=== PATIENT | female | born 1950 | race Caucasian/White ===

== ENCOUNTER 2017-07-05 19:31 | Inpatient (IN) ==
[2017-07-05] MEDS ORDERED: 0.9 % Sodium Chloride 1,000 ML IVC ONE ×3 (19:50→23:43)
[2017-07-05] MEDS ORDERED: Piperacillin/Tazobactam 3.375 GM in 0.9 % Sodium Chloride Mini Bag 100 ML IVPB ONE (20:19)
--- NOTE | 2017-07-05 20:19 | Emergency Department Note ---
Disposition Clinical Impression: Sepsis affecting skin, Abscess, Suicidal ideation, Suicide attempt, Acute kidney injury, Elevated troponin, Left leg cellulitis Disposition: Admitted As Inpatient Condition: Serious Time of Disposition: 00:38 General Adult HPI - General Chief complaint: ED Wound/Laceration Stated complaint: SI/wound infection Time Seen by Provider: 07/05/17 19:38 Source: patient Limitations: no limitations Nursing Notes Reviewed: Yes Vital Signs Reviewed: Yes - History of Present Illness HPI Narrative: Patient is a 66-year-old female presents to the emergency department with a severe wound infection of the left lower extremity as well as admitting to attempted suicide by taking 15-2020 mg pills of oxycodone. Patient states she has had a long-standing history of suicidal ideation. Patient states she has wound care changing dressings on her extremity every day but the wound persists. Patient states the wound is approximately 10 cm deep. Pain Scale: 4 - Related Data Home Medications Medication Instructions Recorded Confirmed CloNIDine HCl 0.1 mg PO BID 07/22/15 07/05/17 Desvenlafaxine Succinate [Pristiq] 50 mg PO QAM 07/22/15 07/05/17 Lisinopril-HCTZ 10-12.5 [Prinzide 1 tab PO BID 07/22/15 07/05/17 10-12.5] Docusate [Colace] 300 mg PO HS 06/05/16 07/05/17 L. Acidophilus/Pectin, [place] 1 each PO DAILY 06/05/16 07/05/17 [Acidophilus Probiotic Capsule] Multivitamin [Multi-Day Vitamins] 1 each PO DAILY 06/05/16 07/05/17 Pseudoephedrine [Sudafed] 60 mg PO TID 06/05/16 07/05/17 Simvastatin [Zocor] 20 mg PO HS 06/05/16 07/05/17 Collagenase Oint [Santyl] 1 appl TP DAILY 07/05/17 07/05/17 Gentamicin Sulfate [Gentamicin 1 appl TP DAILY 07/05/17 07/05/17 Sulfate] Guaifenesin [Mucinex] 600 mg PO Q12H PRN 07/05/17 07/05/17 Mupirocin [Bactroban Oint] 1 appl TP DAILY 07/05/17 07/05/17 OxyCODONE ER (12 HR) [OxyCONTIN] 80 mg PO Q8H 07/05/17 07/05/17 Oxycodone HCl [Oxycodone HCl] 20 mg PO TID 07/05/17 07/05/17 Previous Rx's Medication Instructions Recorded Cyclobenzaprine HCl 10 mg PO TID #28 tablet 08/01/16 Allergies Allergy/AdvReac Type Severity Reaction Status Date / Time clorazepate dipotassium Allergy Itching Verified 06/05/16 13:56 [From Tranxene T-Tab] atorvastatin [From Lipitor] AdvReac Nausea Verified 06/05/16 13:56 bupropion [From Wellbutrin] AdvReac Agitated Verified 06/05/16 13:56 divalproex sodium AdvReac Vomiting Verified 06/05/16 13:56 [From Depakote] eszopiclone [From Lunesta] AdvReac Headache Verified 06/05/16 13:56 gabapentin AdvReac Blurry Verified 06/05/16 13:56 Vision mirtazapine [From Remeron] AdvReac Confusion Verified 06/05/16 13:56 Nefazodone [From Serzone] AdvReac Confusion Verified 06/05/16 13:56 vancomycin AdvReac Itching Verified 06/05/16 13:56 All systems ED: reviewed and negative except as stated. Review of Systems: As Per HPI Past Medical History - Past Medical History Attestation: Yes The following information was validated with the patient. Source: patient Medical history: Reports: arthritis, hyperlipidemia, hypertension, other Surgical history: Reports: hip replacement, knee replacement, MARY/BSO, other Psychiatric history: Reports: depression - Social History Smoking Status: Never smoker Smokeless Tobacco Status: No Alcohol use: Reports: none Drug use: Reports: none Physical Exam Vital Signs Temperature 99.2 F 07/05/17 19:32 Pulse Rate 120 07/05/17 19:32 Respiratory Rate 20 07/05/17 19:32 Blood Pressure 124/62 07/05/17 19:32 O2 Sat by Pulse Oximetry 92 07/05/17 19:32 Temperature 99.2 F 07/05/17 19:32 Pulse Rate 117 07/05/17 19:50 Respiratory Rate 20 07/05/17 21:23 Blood Pressure 91/56 07/05/17 21:23 O2 Sat by Pulse Oximetry 96 07/05/17 21:23 Oxygen Delivery Oxygen Delivery Nasal Cannula 59-year-old female who is alert and oriented 3 does not appear to be in any acute distress at this time. Patient has a GCS of 15, patient is able to maintain conversation and answer questions appropriately and chills off and on then from being sleepy. The patient has large bandage lateral portion of the of her left leg just superior to her left knee that is draining grayish purulent material that smells like feces. Wound was explored and has a 10 cm track and had courtney thick purulent material expressed. - General Limitations: no limitations General appearance: alert, in no apparent distress - Head Head exam: atraumatic, normocephalic, normal inspection - Eye Eye exam: Present: normal appearance, PERRL, EOMI - ENT ENT exam: normal exam, normal oropharynx, mucous membranes dry - Neck Neck exam: Present: normal inspection, full ROM, trachea midline - Chest Chest inspection: Present: normal inspection, symmetric chest wall rise. Absent : tenderness, rash - Respiratory Respiratory exam: Present: normal lung sounds bilaterally. Absent: respiratory distress, wheezes - Cardiovascular Cardiovascular exam: Present: regular rate, normal rhythm, normal heart sounds - Abdominal Exam Abdominal exam: Present: soft, Non-Tender. Absent: tenderness, distention, guarding, rebound, rigidity - Extremities Exam Extremities exam: Present: other (Patient's lower extremities are trunklike. Patient is unable to maintain her body weight and her legs and has a deep purulent wound to the left lateral) Course Vital Signs Temperature 99.2 F 07/05/17 19:32 Pulse Rate 120 07/05/17 19:32 Respiratory Rate 20 07/05/17 19:32 Blood Pressure 124/62 07/05/17 19:32 O2 Sat by Pulse Oximetry 92 07/05/17 19:32 Temperature 98.1 F 07/10/17 07:07 Pulse Rate 90 07/10/17 07:07 Respiratory Rate 18 07/10/17 07:07 Blood Pressure 187/100 07/10/17 07:07 O2 Sat by Pulse Oximetry 91 07/10/17 07:07 Oxygen Delivery Oxygen Delivery Nasal Cannula Medical Decision Making - [facility] Narrative Medical decision making narrative: Patient presents for concerns for suicidal ideation with suicide attempt by using oxycodone ingestion of 15 and 2020 mg tablets. Patient also has concern for sepsis secondary to cellulitis of the left lower extremity which has a festering wound with pockets of pus. Examination her wound showed a 10 cm deep wound with copious thick chunky courtney malodorous. Patient started on Zosyn and linezolid since patient is allergic to vancomycin patient is also given 4 L of fluid bolus. Patient is drowsy but arousable and when she is aroused she is alert and oriented 3. Patient responds well to all questions and has no confusion. Gen. surgery was consulted. Spoke to Dr. Astorga who recommended medical management and Dr. Vee will see the patient in the morning and since he has history of the patient. Patient was admitted to medicine. Hospitalist Dr. Monterroso accepted patient for admission. - Medical Records Medical records reviewed: Yes I reviewed the patient's medical records. Review of patient's MRI taken 3 days ago showed multiple pockets of abscess formation in the left extremity. - Lab Data Lab results reviewed: Yes I reviewed the patient's lab results. Lab results narrative: Short CBC 07/05/17 Range/Units 20:31 WBC 17.0 H (4.3-11.1) K/mcL Hgb 10.0 L (11.5-15.4) g/dL Hct 32.5 L (35.3-44.9) % Plt Count 337 (140-400) K/mcL Neutrophils # 14.9 H (1.6-8.9) K/mcL BMP 07/05/17 Range/Units 20:31 Sodium 134 L (136-145) mEq/L Potassium 4.4 (3.5-4.5) mEq/L Chloride 100 (98-109) mEq/L Carbon Dioxide 25 (19-29) mEq/L BUN 46 H (7-20) mg/dL Creatinine 1.71 H (0.57-1.11) mg/dL Glucose 132 H (70-99) mg/dL Calcium 9.6 (8.6-10.8) mg/dL Cardiac Enzymes 07/05/17 Range/Units 20:28 Troponin I 0.20 H* (0-0.03) ng/mL Liver Function 07/05/17 Range/Units 20:31 Total Bilirubin 0.5 (0.2-1.2) mg/dL Direct Bilirubin 0.2 (0.0-0.5) mg/dL AST 22 (5-34) Units/L ALT 24 (0-55) Units/L Alkaline Phosphatase 88 (38-126) Units/L Albumin 2.9 L (3.5-5.0) g/dL Urine 07/05/17 Range/Units 21:08 Urine Color Dark Yellow (Yellow) Urine Clarity Cloudy A (Clear) Urine pH 5.5 (5.0-8.0) pH Units Ur Specific [place] 1.025 (1.010-1.025) Urine Protein Trace (Neg-Trace) mg/dL Urine Glucose (UA) Normal (Normal) mg/dL Result diagrams: 07/10/17 04:39 07/10/17 04:39 Lab Results 07/05/17 07/05/17 07/05/17 Range/Units 20:28 20:28 20:31 WBC 17.0 H (4.3-11.1) K/mcL RBC 3.49 L (3.82-4.97) M/mcL Hgb 10.0 L (11.5-15.4) g/dL Hct 32.5 L (35.3-44.9) % MCV 93.1 (83.0-100.0) fL MCH 28.7 (28.0-33.3) pg MCHC 30.8 L (31.6-35.5) g/dL RDW 14.6 H (11.5-14.5) % Plt Count 337 (140-400) K/mcL MPV 9.5 (9.4-12.4) fL Immature Gran % 0.7 (0-4) % Seg Neutrophils % 87.3 % Lymphocytes % 4.9 % Monocytes % 7.0 % Eosinophils % 0.0 % Basophils % 0.1 % Neutrophils # 14.9 H (1.6-8.9) K/mcL Lymphocytes # 0.8 (0.6-4.6) K/mcL Monocytes # 1.2 (0.0-1.3) K/mcL Eosinophils # 0.0 (0.0-0.6) K/mcL Basophils # 0.0 (0.0-0.2) K/mcL PT (9.4-12.1) Seconds INR APTT (26.0-36.0) Seconds D-Dimer (0-500) ng/mLFEU Sodium (136-145) mEq/L Potassium (3.5-4.5) mEq/L Chloride (98-109) mEq/L Carbon Dioxide (19-29) mEq/L BUN (7-20) mg/dL Creatinine (0.57-1.11) mg/dL Est GFR ( Amer) (> 60) Est GFR (Non-Af Amer) (> 60) BUN/Creatinine Ratio (6-26) Glucose (70-99) mg/dL POC Glucose (58-89) Calculated Osmolality (280-300) Lactic Acid (0.5-2.2) mmol/L Calcium (8.6-10.8) mg/dL Phosphorus 4.1 (2.3-4.7) mg/dL Magnesium 2.0 (1.6-2.6) mg/dL Total Bilirubin (0.2-1.2) mg/dL Direct Bilirubin (0.0-0.5) mg/dL Indirect Bilirubin (0.0-1.2) mg/dL AST (5-34) Units/L ALT (0-55) Units/L Alkaline Phosphatase (38-126) Units/L Troponin I 0.20 H* (0-0.03) ng/mL B-Natriuretic Peptide (0-100) pg/mL Serum Total Protein (6.0-8.3) g/dL Albumin (3.5-5.0) g/dL Globulin (2.4-3.5) g/dL Albumin/Globulin Ratio (1.1-2.2) Urine Color (Yellow) Urine Clarity (Clear) Urine pH (5.0-8.0) pH Units Ur Specific [place] (1.010-1.025) Urine Protein (Neg-Trace) mg/dL Urine Glucose (UA) (Normal) mg/dL Urine Ketones (Negative) mg/dL Urine Blood (Negative) Urine Nitrite (Negative) Urine Bilirubin (Negative) Urine Urobilinogen (Normal) mg/dL Ur Leukocyte Esterase (Negative) Urine Microscopic RBC (0-3) per hpf Urine Microscopic WBC (0-3) per hpf Ur Squamous Epith Cells (None-Few) per lpf Urine Bacteria (None-Few) per hpf Hyaline Casts (None-Few) per lpf Salicylates (15-30) mg/dL Urine Opiates Screen (Ligvan=786) ng/mL Acetaminophen (10-30) mcg/mL Ur Barbiturates Screen (Fpaxch=409) ng/mL Ur Phencyclidine Scrn (Cutoff=25) ng/mL Ur Amphetamines Screen (Elbbwx=7694) ng/mL U Benzodiazepines Scrn (Hgrlhr=897) ng/mL Urine Cocaine Screen (Cutoff= 300) ng/mL U Marijuana (THC) Screen (Cutoff = 50) ng/mL Ethyl Alcohol (0-10) mg/dL 07/05/17 07/05/17 07/05/17 Range/Units 20:31 20:31 21:08 WBC (4.3-11.1) K/mcL RBC (3.82-4.97) M/mcL Hgb (11.5-15.4) g/dL Hct (35.3-44.9) % MCV (83.0-100.0) fL MCH (28.0-33.3) pg MCHC (31.6-35.5) g/dL RDW (11.5-14.5) % Plt Count (140-400) K/mcL MPV (9.4-12.4) fL Immature Gran % (0-4) % Seg Neutrophils % % Lymphocytes % % Monocytes % % Eosinophils % % Basophils % % Neutrophils # (1.6-8.9) K/mcL Lymphocytes # (0.6-4.6) K/mcL Monocytes # (0.0-1.3) K/mcL Eosinophils # (0.0-0.6) K/mcL Basophils # (0.0-0.2) K/mcL PT (9.4-12.1) Seconds INR APTT (26.0-36.0) Seconds D-Dimer (0-500) ng/mLFEU Sodium 134 L (136-145) mEq/L Potassium 4.4 (3.5-4.5) mEq/L Chloride 100 (98-109) mEq/L Carbon Dioxide 25 (19-29) mEq/L BUN 46 H (7-20) mg/dL Creatinine 1.71 H (0.57-1.11) mg/dL Est GFR ( Amer) 36 L (> 60) Est GFR (Non-Af Amer) 30 L (> 60) BUN/Creatinine Ratio 27 H (6-26) Glucose 132 H (70-99) mg/dL POC Glucose (58-89) Calculated Osmolality 292 (280-300) Lactic Acid 1.9 (0.5-2.2) mmol/L Calcium 9.6 (8.6-10.8) mg/dL Phosphorus (2.3-4.7) mg/dL Magnesium (1.6-2.6) mg/dL Total Bilirubin 0.5 (0.2-1.2) mg/dL Direct Bilirubin 0.2 (0.0-0.5) mg/dL Indirect Bilirubin 0.3 (0.0-1.2) mg/dL AST 22 (5-34) Units/L ALT 24 (0-55) Units/L Alkaline Phosphatase 88 (38-126) Units/L Troponin I (0-0.03) ng/mL B-Natriuretic Peptide (0-100) pg/mL Serum Total Protein 7.3 (6.0-8.3) g/dL Albumin 2.9 L (3.5-5.0) g/dL Globulin 4.4 H (2.4-3.5) g/dL Albumin/Globulin Ratio 0.7 L (1.1-2.2) Urine Color Dark Yellow (Yellow) Urine Clarity Cloudy A (Clear) Urine pH 5.5 (5.0-8.0) pH Units Ur Specific [place] 1.025 (1.010-1.025) Urine Protein Trace (Neg-Trace) mg/dL Urine Glucose (UA) Normal (Normal) mg/dL Urine Ketones Negative (Negative) mg/dL Urine Blood Negative (Negative) Urine Nitrite Negative (Negative) Urine Bilirubin Small H (Negative) Urine Urobilinogen Normal (Normal) mg/dL Ur Leukocyte Esterase Negative (Negative) Urine Microscopic RBC 0-3 (0-3) per hpf Urine Microscopic WBC 0-3 (0-3) per hpf Ur Squamous Epith Cells Many H (None-Few) per lpf Urine Bacteria Few (None-Few) per hpf Hyaline Casts Many H (None-Few) per lpf Salicylates < 5.0 L (15-30) mg/dL Urine Opiates Screen (Odyqot=430) ng/mL Acetaminophen < 1.0 L (10-30) mcg/mL Ur Barbiturates Screen (Ckuvpk=234) ng/mL Ur Phencyclidine Scrn (Cutoff=25) ng/mL Ur Amphetamines Screen (Xuwxoe=2304) ng/mL U Benzodiazepines Scrn (Xwilob=139) ng/mL Urine Cocaine Screen (Cutoff= 300) ng/mL U Marijuana (THC) Screen (Cutoff = 50) ng/mL Ethyl Alcohol < 10 (0-10) mg/dL 07/05/17 07/06/17 07/06/17 Range/Units 21:08 00:57 00:57 WBC (4.3-11.1) K/mcL RBC (3.82-4.97) M/mcL Hgb (11.5-15.4) g/dL Hct (35.3-44.9) % MCV (83.0-100.0) fL MCH (28.0-33.3) pg MCHC (31.6-35.5) g/dL RDW (11.5-14.5) % Plt Count (140-400) K/mcL MPV (9.4-12.4) fL Immature Gran % (0-4) % Seg Neutrophils % % Lymphocytes % % Monocytes % % Eosinophils % % Basophils % % Neutrophils # (1.6-8.9) K/mcL Lymphocytes # (0.6-4.6) K/mcL Monocytes # (0.0-1.3) K/mcL Eosinophils # (0.0-0.6) K/mcL Basophils # (0.0-0.2) K/mcL PT 13.6 H (9.4-12.1) Seconds INR 1.3 APTT 29.0 (26.0-36.0) Seconds D-Dimer 1571 H (0-500) ng/mLFEU Sodium (136-145) mEq/L Potassium (3.5-4.5) mEq/L Chloride (98-109) mEq/L Carbon Dioxide (19-29) mEq/L BUN (7-20) mg/dL Creatinine (0.57-1.11) mg/dL Est GFR ( Amer) (> 60) Est GFR (Non-Af Amer) (> 60) BUN/Creatinine Ratio (6-26) Glucose (70-99) mg/dL POC Glucose (58-89) Calculated Osmolality (280-300) Lactic Acid (0.5-2.2) mmol/L Calcium (8.6-10.8) mg/dL Phosphorus (2.3-4.7) mg/dL Magnesium (1.6-2.6) mg/dL Total Bilirubin (0.2-1.2) mg/dL Direct Bilirubin (0.0-0.5) mg/dL Indirect Bilirubin (0.0-1.2) mg/dL AST (5-34) Units/L ALT (0-55) Units/L Alkaline Phosphatase (38-126) Units/L Troponin I (0-0.03) ng/mL B-Natriuretic Peptide 84 (0-100) pg/mL Serum Total Protein (6.0-8.3) g/dL Albumin (3.5-5.0) g/dL Globulin (2.4-3.5) g/dL Albumin/Globulin Ratio (1.1-2.2) Urine Color (Yellow) Urine Clarity (Clear) Urine pH (5.0-8.0) pH Units Ur Specific [place] (1.010-1.025) Urine Protein (Neg-Trace) mg/dL Urine Glucose (UA) (Normal) mg/dL Urine Ketones (Negative) mg/dL Urine Blood (Negative) Urine Nitrite (Negative) Urine Bilirubin (Negative) Urine Urobilinogen (Normal) mg/dL Ur Leukocyte Esterase (Negative) Urine Microscopic RBC (0-3) per hpf Urine Microscopic WBC (0-3) per hpf Ur Squamous Epith Cells (None-Few) per lpf Urine Bacteria (None-Few) per hpf Hyaline Casts (None-Few) per lpf Salicylates (15-30) mg/dL Urine Opiates Screen Positive H (Dgubqp=089) ng/mL Acetaminophen (10-30) mcg/mL Ur Barbiturates Screen Negative (Rjfzxm=306) ng/mL Ur Phencyclidine Scrn Negative (Cutoff=25) ng/mL Ur Amphetamines Screen Negative (Rxodxt=4119) ng/mL U Benzodiazepines Scrn Negative (Zfamus=458) ng/mL Urine Cocaine Screen Negative (Cutoff= 300) ng/mL U Marijuana (THC) Screen Negative (Cutoff = 50) ng/mL Ethyl Alcohol (0-10) mg/dL 07/06/17 07/06/17 07/06/17 Range/Units 00:57 00:57 00:57 WBC 14.6 H (4.3-11.1) K/mcL RBC 3.25 L (3.82-4.97) M/mcL Hgb 9.6 L (11.5-15.4) g/dL Hct 30.8 L (35.3-44.9) % MCV 94.8 (83.0-100.0) fL MCH 29.5 (28.0-33.3) pg MCHC 31.2 L (31.6-35.5) g/dL RDW 14.6 H (11.5-14.5) % Plt Count 288 (140-400) K/mcL MPV 9.5 (9.4-12.4) fL Immature Gran % 0.5 (0-4) % Seg Neutrophils % 86.3 % Lymphocytes % 6.8 % Monocytes % 6.2 % Eosinophils % 0.1 % Basophils % 0.1 % Neutrophils # 12.6 H (1.6-8.9) K/mcL Lymphocytes # 1.0 (0.6-4.6) K/mcL Monocytes # 0.9 (0.0-1.3) K/mcL Eosinophils # 0.0 (0.0-0.6) K/mcL Basophils # 0.0 (0.0-0.2) K/mcL PT (9.4-12.1) Seconds INR APTT (26.0-36.0) Seconds D-Dimer (0-500) ng/mLFEU Sodium 134 L (136-145) mEq/L Potassium 4.3 (3.5-4.5) mEq/L Chloride 102 (98-109) mEq/L Carbon Dioxide 23 (19-29) mEq/L BUN 44 H (7-20) mg/dL Creatinine 1.64 H (0.57-1.11) mg/dL Est GFR ( Amer) 38 L (> 60) Est GFR (Non-Af Amer) 31 L (> 60) BUN/Creatinine Ratio 27 H (6-26) Glucose 112 H (70-99) mg/dL POC Glucose (58-89) Calculated Osmolality 290 (280-300) Lactic Acid (0.5-2.2) mmol/L Calcium 9.0 (8.6-10.8) mg/dL Phosphorus (2.3-4.7) mg/dL Magnesium 2.0 (1.6-2.6) mg/dL Total Bilirubin (0.2-1.2) mg/dL Direct Bilirubin (0.0-0.5) mg/dL Indirect Bilirubin (0.0-1.2) mg/dL AST (5-34) Units/L ALT (0-55) Units/L Alkaline Phosphatase (38-126) Units/L Troponin I 0.44 H* (0-0.03) ng/mL B-Natriuretic Peptide (0-100) pg/mL Serum Total Protein (6.0-8.3) g/dL Albumin (3.5-5.0) g/dL Globulin (2.4-3.5) g/dL Albumin/Globulin Ratio (1.1-2.2) Urine Color (Yellow) Urine Clarity (Clear) Urine pH (5.0-8.0) pH Units Ur Specific [place] (1.010-1.025) Urine Protein (Neg-Trace) mg/dL Urine Glucose (UA) (Normal) mg/dL Urine Ketones (Negative) mg/dL Urine Blood (Negative) Urine Nitrite (Negative) Urine Bilirubin (Negative) Urine Urobilinogen (Normal) mg/dL Ur Leukocyte Esterase (Negative) Urine Microscopic RBC (0-3) per hpf Urine Microscopic WBC (0-3) per hpf Ur Squamous Epith Cells (None-Few) per lpf Urine Bacteria (None-Few) per hpf Hyaline Casts (None-Few) per lpf Salicylates (15-30) mg/dL Urine Opiates Screen (Xbdnru=934) ng/mL Acetaminophen (10-30) mcg/mL Ur Barbiturates Screen (Qvgbep=810) ng/mL Ur Phencyclidine Scrn (Cutoff=25) ng/mL Ur Amphetamines Screen (Iueekv=2200) ng/mL U Benzodiazepines Scrn (Vfygwr=825) ng/mL Urine Cocaine Screen (Cutoff= 300) ng/mL U Marijuana (THC) Screen (Cutoff = 50) ng/mL Ethyl Alcohol (0-10) mg/dL 07/06/17 Range/Units 01:17 WBC (4.3-11.1) K/mcL RBC (3.82-4.97) M/mcL Hgb (11.5-15.4) g/dL Hct (35.3-44.9) % MCV (83.0-100.0) fL MCH (28.0-33.3) pg MCHC (31.6-35.5) g/dL RDW (11.5-14.5) % Plt Count (140-400) K/mcL MPV (9.4-12.4) fL Immature Gran % (0-4) % Seg Neutrophils % % Lymphocytes % % Monocytes % % Eosinophils % % Basophils % % Neutrophils # (1.6-8.9) K/mcL Lymphocytes # (0.6-4.6) K/mcL Monocytes # (0.0-1.3) K/mcL Eosinophils # (0.0-0.6) K/mcL Basophils # (0.0-0.2) K/mcL PT (9.4-12.1) Seconds INR APTT (26.0-36.0) Seconds D-Dimer (0-500) ng/mLFEU Sodium (136-145) mEq/L Potassium (3.5-4.5) mEq/L Chloride (98-109) mEq/L Carbon Dioxide (19-29) mEq/L BUN (7-20) mg/dL Creatinine (0.57-1.11) mg/dL Est GFR ( Amer) (> 60) Est GFR (Non-Af Amer) (> 60) BUN/Creatinine Ratio (6-26) Glucose (70-99) mg/dL POC Glucose 94 H (58-89) Calculated Osmolality (280-300) Lactic Acid (0.5-2.2) mmol/L Calcium (8.6-10.8) mg/dL Phosphorus (2.3-4.7) mg/dL Magnesium (1.6-2.6) mg/dL Total Bilirubin (0.2-1.2) mg/dL Direct Bilirubin (0.0-0.5) mg/dL Indirect Bilirubin (0.0-1.2) mg/dL AST (5-34) Units/L ALT (0-55) Units/L Alkaline Phosphatase (38-126) Units/L Troponin I (0-0.03) ng/mL B-Natriuretic Peptide (0-100) pg/mL Serum Total Protein (6.0-8.3) g/dL Albumin (3.5-5.0) g/dL Globulin (2.4-3.5) g/dL Albumin/Globulin Ratio (1.1-2.2) Urine Color (Yellow) Urine Clarity (Clear) Urine pH (5.0-8.0) pH Units Ur Specific [place] (1.010-1.025) Urine Protein (Neg-Trace) mg/dL Urine Glucose (UA) (Normal) mg/dL Urine Ketones (Negative) mg/dL Urine Blood (Negative) Urine Nitrite (Negative) Urine Bilirubin (Negative) Urine Urobilinogen (Normal) mg/dL Ur Leukocyte Esterase (Negative) Urine Microscopic RBC (0-3) per hpf Urine Microscopic WBC (0-3) per hpf Ur Squamous Epith Cells (None-Few) per lpf Urine Bacteria (None-Few) per hpf Hyaline Casts (None-Few) per lpf Salicylates (15-30) mg/dL Urine Opiates Screen (Iwesjn=336) ng/mL Acetaminophen (10-30) mcg/mL Ur Barbiturates Screen (Fpfdfh=311) ng/mL Ur Phencyclidine Scrn (Cutoff=25) ng/mL Ur Amphetamines Screen (Dmfmsj=3407) ng/mL U Benzodiazepines Scrn (Xflltq=850) ng/mL Urine Cocaine Screen (Cutoff= 300) ng/mL U Marijuana (THC) Screen (Cutoff = 50) ng/mL Ethyl Alcohol (0-10) mg/dL - Radiology Data Radiology results reviewed: Yes I reviewed the patient's radiology results. Chest X-Ray 07/05/17 19:50 IMPRESSION: No acute process. D/ / Mariano Robles MD / Mariano Robles MD Interpreting Provider: Mariano Robles MD Lower Extremity CT 07/05/17 20:02 IMPRESSION: 1. Status post left total knee arthroplasty with a moderate joint effusion. Age-indeterminate erosion of the posterior aspect of the patella. Widening at the bone metal interface of the anterior distal femur and tibial tray. Findings are concerning for septic arthritis and osteomyelitis is not excluded. Please consider arthrocentesis. Also recommend radiographs to compare with previous studies. 2. Collection of gas and fluid in the lateral subcutaneous fat at the level of the distal femur suspicious for an abscess. 3. Separate collections in the medial subcutaneous fat at the level of the distal femur and proximal tibia also may represent abscesses although hematomas are also possible. 4. Severe diffuse subcutaneous fat stranding compatible with cellulitis versus lymphedema. D/ / Ganga Vallejo MD / Ganga Vallejo MD Interpreting Provider: Ganga Vallejo MD - EKG Data EKG #1 EKG attestation: Yes I reviewed and interpreted this EKG. EKG shows normal: sinus rhythm Rate: tachycardia When compared to previous EKG there are: no significant changes Interpretation: no acute changes Attestation Statement - Attestation Attestation: I, Devin Martinez, examined this patient and my medical decision-making was reviewed with the FORWARDER OPERATOR/PA/Advanced Practice Nurse/Resident Physician. I agree with the documented findings, disposition and treatment plan as described except to the extent set forth below. 66-year-old female presents to emergency department with severe wound infection to the left lower extremity as well as reporting a suicide attempt by taking 15- 20 of her 20 mg of oxycodone pills. MRI of the leg shows a wound that has tunneled within the subcutaneous tissue. Patient has active drainage of purulent material from the wound on exam. Patient is followed by Dr. Schwarz for care. Patient will be admitted to the hospital for further evaluation of her left lower extremity infection as well as for evaluation of suicidal ideation.
[2017-07-05 20:39] LABS: Basophils % 0.1 %; Hematocrit 32.5 % (35.3-44.9); Immature Granulocytes % 0.7 % (0-4); Lymphocytes # 0.8 K/mcL (0.6-4.6); Lymphocytes % 4.9 %; Mean Corpuscular HGB Conc 30.8 g/dL (31.6-35.5); Mean Corpuscular Hemoglobin 28.7 pg (28.0-33.3); Mean Corpuscular Volume 93.1 fL (83.0-100.0); Mean Platelet Volume 9.5 fL (9.4-12.4); Monocytes # 1.2 K/mcL (0.0-1.3); Neutrophils # 14.9 K/mcL (1.6-8.9); Platelet Count 337 K/mcL (140-400); Red Blood Count 3.49 M/mcL (3.82-4.97); Red Cell Distribution Width 14.6 % (11.5-14.5); Segmented Neutrophils % 87.3 %
[2017-07-05 20:53] LABS: Phosphorous 4.1 mg/dL (2.3-4.7)
[2017-07-05 20:55] LABS: Acetaminophen < 1.0 mcg/mL (10-30); Alanine Aminotransferase 24 Units/L (0-55); Albumin 2.9 g/dL (3.5-5.0); Albumin/Globulin Ratio 0.7 (1.1-2.2); Alkaline Phosphatase 88 Units/L (38-126); Aspartate Amino Transferase 22 Units/L (5-34); BUN/Creatinine Ratio 27 (6-26); Bilirubin,Direct 0.2 mg/dL (0.0-0.5); Bilirubin,Indirect 0.3 mg/dL (0.0-1.2); Bilirubin,Total 0.5 mg/dL (0.2-1.2); Blood Urea Nitrogen 46 mg/dL (7-20); Calcium 9.6 mg/dL (8.6-10.8); Carbon Dioxide 25 mEq/L (19-29); Chloride 100 mEq/L (98-109); Ethanol < 10 mg/dL (0-10); Globulin 4.4 g/dL (2.4-3.5); Glucose 132 mg/dL (70-99); Osmolality,Calculated 292 (280-300); Potassium 4.4 mEq/L (3.5-4.5); Salicylate < 5.0 mg/dL (15-30); Sodium 134 mEq/L (136-145); Total Protein 7.3 g/dL (6.0-8.3); eGFR For African Americans 36 (> 60); eGFR For Non-African Americans 30 (> 60)
[2017-07-05 21:17] LABS: Bilirubin,Urine Small (Negative); Blood,Urine Negative (Negative); Clarity,Urine Cloudy (Clear); Color,Urine Dark Yellow (Yellow); Glucose,Urine (UA) Normal (Normal); Ketones,Urine Negative (Negative); Leukocyte Esterase,Urine Negative (Negative); Nitrite,Urine Negative (Negative); PH,Urine 5.5 pH Units (5.0-8.0); Protein,Urine Trace mg/dL (Neg-Trace); Specific Gravity,Urine 1.025 (1.010-1.025); Urobilinogen,Urine Normal (Normal)
[2017-07-05 21:20] LABS: Squamous Epithelial Cell,Urine Many per lpf (None-Few); WBC,Urine 0-3 per hpf (0-3)
[2017-07-05 21:24] LABS: Amphetamine Screen,Urine Negative ng/mL (Cutoff=1000); Barbiturate Screen,Urine Negative ng/mL (Cutoff=200); Benzodiazepines Screen,Urine Negative ng/mL (Cutoff=200); Cannabinoid Screen,Urine Negative ng/mL (Cutoff = 50); Cocaine Screen,Urine Negative ng/mL (Cutoff= 300); Opiate Screen,Urine Positive ng/mL (Cutoff=300); Phencyclidine Screen,Urine Negative ng/mL (Cutoff=25)
[2017-07-05 21:51] LABS: Hyaline Casts,Urine Many per lpf (None-Few)
[2017-07-05 21:52] LABS: Bacteria,Urine Few per hpf (None-Few); RBC,Urine 0-3 per hpf (0-3)
[2017-07-05] MEDS ORDERED: 0.9 % Sodium Chloride 1,000 ML IVC SCH (23:45)
[2017-07-05] MEDS ORDERED: Ondansetron 4 MG/2 ML VIAL IVP PRN (23:58)
[2017-07-06] MEDS ORDERED: *HR* Heparin 5,000 UNIT/ML VIAL SQ SCH
[2017-07-06 01:09] LABS: Basophils % 0.1 %; Eosinophils % 0.1 %; Hematocrit 30.8 % (35.3-44.9); Hemoglobin 9.6 g/dL (11.5-15.4); Immature Granulocytes % 0.5 % (0-4); Lymphocytes % 6.8 %; Mean Corpuscular HGB Conc 31.2 g/dL (31.6-35.5); Mean Corpuscular Hemoglobin 29.5 pg (28.0-33.3); Mean Corpuscular Volume 94.8 fL (83.0-100.0); Mean Platelet Volume 9.5 fL (9.4-12.4); Monocytes # 0.9 K/mcL (0.0-1.3); Monocytes % 6.2 %; Neutrophils # 12.6 K/mcL (1.6-8.9); Platelet Count 288 K/mcL (140-400); Red Blood Count 3.25 M/mcL (3.82-4.97); Red Cell Distribution Width 14.6 % (11.5-14.5); Segmented Neutrophils % 86.3 %
[2017-07-06 01:15] LABS: INR 1.3; Prothrombin Time 13.6 Seconds (9.4-12.1)
[2017-07-06 01:21] LABS: Potassium 4.3 mEq/L (3.5-4.5)
[2017-07-06] MEDS ORDERED: *HR* Heparin 5,000 UNIT/ML VIAL IVP ONE ×2 (01:41→02:02)
[2017-07-06] MEDS ORDERED: *HR* Heparin 5,000 UNIT/ML VIAL IVP PRN ×4 (01:41→02:02)
--- NOTE | 2017-07-06 01:43 | Internal Med History&Physical ---
Date of Encounter: 07/06/17 Time of Encounter: 01:30 Assessment and Plan (1) Septic shock Current visit: Yes Status: Acute Septic shock, present on admission - secondary to acute left lower leg cellulitis with wound infection - with possible abscess and possible septic arthritis with osteomyelitis - with acute kidney injury Continue empiric IV Zosyn, IV Clindamycin, IV Zyvox, fluid resuscitation May need central line and vasopressors if blood pressure does not improve Patient does have bilateral knee replacements, possible infection of prosthetic joint Cultures - pending Chest x-ray - no acute process Left lower leg CT scan - reviewed CT head - no acute intracranial abnormality VQ scan - pending Ultrasound Doppler - pending WBC - 17.0 Lactic acid - 1.9 Gen. surgery consult - Dr. Astorga has been consulted from ED, Orthopedics consult for possible septic arthritis and osteomyelitis Cardiac telemetry, pulse ox, labs in a.m., monitor closely, guarded condition (2) Left leg cellulitis Current visit: Yes Status: Acute Left lower extremity cellulitis with lymphedema - wound over left lower leg lateral aspect with purulent discharge Cultures - pending Continue IV Zosyn, IV Clindamycin, IV Zyvox (3) Suicide attempt Current visit: Yes Status: Acute Suicidal attempt with intentional ingestion of 15-20 pills of Oxycodone - continues to have suicidal ideation - likely causing patient to be drowsy She does have a history of chronic depression Resuscitation for hypotension, supportive care, sitter CT head - no acute intracranial abnormality Psychiatry consult (4) Elevated d-dimer Current visit: Yes Status: Acute D-dimer elevated, 1571 - rule out PE and DVT Standard dose IV Heparin per protocol has been started VQ scan - pending Ultrasound Dopplers - pending (5) Elevated troponin Current visit: Yes Status: Acute Elevated troponin - 0.44 -probable demand ischemia - rule out ACS Also possibly due to sepsis and hypotension, cycle troponin Continue Aspirin, Zocor, IV Heparin per protocol EKG - sinus rhythm with no acute ST-T changes Echocardiogram - pending Cardiology consult (6) Acute kidney injury Current visit: Yes Status: Acute Acute kidney injury - likely secondary to sepsis and due to volume depletion/ dehydration Continue IV fluids and fluid resuscitation, labs in a.m., monitor closely (7) Lymphedema of both lower extremities Current visit: Yes Status: Chronic Chronic bilateral lower leg lymphedema with left lower extremity cellulitis and wound Gen. surgery consult, dressing change, empiric IV antibiotics (8) DVT prophylaxis Current visit: Yes Status: Acute Continue IV Heparin protocol Internal Medicine - H&P: HPI Chief complaint: Left lower leg wound, suicidal ideation Admitted From: Emergency Dept Plans for Post Hospital Care: Home History of present illness: Ms. Roger is a 66 year old female with past medical history of arthritis, hyperlipidemia, hypertension, lymphedema, chronic left lower leg wound and chronic pain. Patient presents to the ED with worsening left lower leg wound infection and suicidal attempt. Examined in the room. Patient is drowsy but easily arousable. Able to provide history. No family members at bedside. Patient states her left lower leg wound seems worsening. Complains of worsening lymphedema and drainage from the left lower leg. She was recently seen in the wound care clinic and had dressings changed. She states she also took about 15-20 pills of oxycodone with suicidal intent. Patient states she does not want to live this way. Apparently has suicidal ideation over the past 9 year, but has never attempted anything until today. Patient denies chest pain or palpitations. Denies headache or dizziness or fever. She does complain of shortness of breath which she attributes to her sinus infection. Denies abdominal pain or vomiting or diarrhea. Patient is oriented 3 and not in any distress, but is drowsy. Patient has also been hypotensive likely due to sepsis. She has no other complaints at this time. No other associated symptoms. Initial workup in the ED significant for elevated white count. She also has elevated troponin. D-dimer is elevated. CT of the head is negative for any acute intracranial abnormality. Patient has been started on IV heparin as per protocol for elevated d-dimer and for elevated troponin. EKG does not show any acute ST-T changes. We will continue IV antibiotics. We will continue IV fluid boluses for hypotension. VQ scan and ultrasound Dopplers pending. Patient has been explained about her guarded condition and guarded prognosis. She understood and agreed. No unanswered questions. No family members at the time of admission. CODE STATUS full code. Past Med Surg Social Fam HX - Past Medical History Medical history: arthritis, hyperlipidemia, hypertension, other Psychiatric history: depression - Past Surgical History Surgical History: hip replacement, knee replacement, MARY/BSO, other - Social History Smoking Status: Never smoker Smokeless Tobacco Status: No Alcohol use: none Drug use: none - Family History Mother Living Status: Hx Family Cardiac Disorders: Yes Hx Family Respiratory Disorders: No Hx Family Cancer: Yes Hx Family GI Disorders: Yes Hx Family Endocrine Disorder: Yes Hx Family Neuromuscular Disorders: Yes Hx Family Neurologic Disorders: No Hx Family HEENT Disorders: No Hx Family Autoimmune Disorders: No Father Living Status: Hx Family Cardiac Disorders: Yes Hx Family Respiratory Disorders: No Hx Family Cancer: No Hx Family GI Disorders: No Hx Family Endocrine Disorder: No Hx Family Neuromuscular Disorders: No Hx Family Neurologic Disorders: No Hx Family HEENT Disorders: No Hx Family Autoimmune Disorders: No Internal Medicine - H&P: Meds CloNIDine HCl 0.1 mg PO BID 07/22/15 [History] Desvenlafaxine Succinate [Pristiq] 50 mg PO QAM 07/22/15 [History] Lisinopril-HCTZ 10-12.5 [Prinzide 10-12.5] 1 tab PO BID 07/22/15 [History] Docusate [Colace] 300 mg PO HS 06/05/16 [History] L. Acidophilus/Pectin, [place] [Acidophilus Probiotic Capsule] 1 each PO DAILY [History] Multivitamin [Multi-Day Vitamins] 1 each PO DAILY 06/05/16 [History] Pseudoephedrine [Sudafed] 60 mg PO TID 06/05/16 [History] Simvastatin [Zocor] 20 mg PO HS 06/05/16 [History] Cyclobenzaprine HCl 10 mg PO TID #28 tablet 08/01/16 [Rx] Collagenase Oint [Santyl] 1 appl TP DAILY 07/05/17 [History] Gentamicin Sulfate [Gentamicin Sulfate] 1 appl TP DAILY 07/05/17 [History] Guaifenesin [Mucinex] 600 mg PO Q12H PRN 07/05/17 [History] Mupirocin [Bactroban Oint] 1 appl TP DAILY 07/05/17 [History] OxyCODONE ER (12 HR) [OxyCONTIN] 80 mg PO Q8H 07/05/17 [History] Oxycodone HCl [Oxycodone HCl] 20 mg PO TID 07/05/17 [History] 3 Allergy/AdvReac Type Severity Reaction Status Date / Time clorazepate dipotassium Allergy Itching Verified 06/05/16 13:56 [From Tranxene T-Tab] atorvastatin [From Lipitor] AdvReac Nausea Verified 06/05/16 13:56 bupropion [From Wellbutrin] AdvReac Agitated Verified 06/05/16 13:56 divalproex sodium AdvReac Vomiting Verified 06/05/16 13:56 [From Depakote] eszopiclone [From Lunesta] AdvReac Headache Verified 06/05/16 13:56 gabapentin AdvReac Blurry Verified 06/05/16 13:56 Vision mirtazapine [From Remeron] AdvReac Confusion Verified 06/05/16 13:56 Nefazodone [From Serzone] AdvReac Confusion Verified 06/05/16 13:56 vancomycin AdvReac Itching Verified 06/05/16 13:56 All Systems PM: A 10-system review of systems was performed and is negative for pertinent findings except as documented above in the HPI. - Constitutional Constitutional: fatigue, no fever(s), no weakness - EENT Eyes: no blurry vision - Cardiovascular Cardiovascular ROS IM: dyspnea, dyspnea on exertion, edema, no chest pain, no diaphoresis, no lightheadedness, no orthopnea, no palpitations, no syncope - Respiratory Respiratory: cough, dyspnea, dyspnea on exertion, no hemoptysis, no wheezing, no chest congestion - Gastrointestinal Gastrointestinal: no abdominal pain, no bloating, no cramping, no diarrhea, no hematochezia, no loose stools, no nausea, no vomiting - Genitourinary Genitourinary: no dysuria - Musculoskeletal Additional comments: Worsening lymphedema. Worsening left lower extremity wound infection. - Neurological Neurological ROS: no abnormal gait, no burning sensations, no confusion, no convulsions, no dizziness, no focal weakness, no numbness, no tingling - Constitutional Vitals: Temp Pulse Resp BP Pulse Ox 98.5 F 103 16 103/58 95 07/06/17 01:14 07/06/17 01:14 07/06/17 01:14 07/06/17 01:14 07/06/17 01:14 General appearance: Present: A&O X 3, morbidly obese, no acute distress, answers questions appropriately Exam: Patient is drowsy but easily arousable. Able to answer questions appropriately. She seems chronically ill. - Head Head exam: Present: atraumatic - Eye Eye exam: Present: EOMI - ENT ENT exam: Present: mucous membranes dry - Respiratory Respiratory exam: Present: CTAB. Absent: rales, rhonchi, wheezes, tachypnea - Cardiovascular Cardiovascular exam: Present: RRR, +S1, +S2 - GI/Abdominal GI/Abdominal exam: Present: soft, no peritoneal signs. Absent: distended, firm , guarding, tenderness - Extremities Exam Extremities exam: Present: radial pulses palpable and symmetrical. Absent: cyanotic Additional comments: Bilateral lower leg 4+ lymphedema. Left lower extremity erythema likely cellulitis. Patient has a wound over left lower leg lateral aspect with grayish purulent discharge. Wound seems to be tracking. - Neurological Exam Neurological exam: Present: CN II-XII intact, oriented X3, no focal deficits. Absent: facial droop, speech deficit Additional comments: Patient is drowsy but easily arousable. Able to verbalize and follows verbal commands. Internal Med - H&P Results - Labs CBC & Chem 7: 07/06/17 00:57 07/06/17 00:57 Labs: Short CBC 07/06/17 Range/Units 00:57 WBC 14.6 H (4.3-11.1) K/mcL Hgb 9.6 L (11.5-15.4) g/dL Hct 30.8 L (35.3-44.9) % Plt Count 288 (140-400) K/mcL Neutrophils # 12.6 H (1.6-8.9) K/mcL BMP 07/06/17 00:57 Sodium 134 L Potassium 4.3 Chloride 102 Carbon Dioxide 23 BUN 44 H Creatinine 1.64 H Glucose 112 H Calcium 9.0 Cardiac Enzymes 07/06/17 Range/Units 00:57 Troponin I 0.44 H* (0-0.03) ng/mL
[2017-07-06] MEDS ORDERED: Heparin 25,000 UNIT/500 ML D5W 25,000 UNIT/500 ML MLS IVC SCH (01:45)
[2017-07-06] MEDS ORDERED: Aspirin 325 MG TABLET PO ONE (01:46)
[2017-07-06] MEDS ORDERED: Ipratropium/Albuterol Neb 3 ML IH PRN (02:08)
[2017-07-06] MEDS: Heparin 25,000 UNIT/500 ML D5W 25,000 UNIT/500 ML MLS IVC SCH ×2 (03:22→20:35)
[2017-07-06] MEDS ORDERED: 0.9 % Sodium Chloride 500 ML IVC ONE ×2 (03:29→03:41)
[2017-07-06 04:15] LABS: Hematocrit 26.4 % (35.3-44.9); Mean Corpuscular HGB Conc 30.3 g/dL (31.6-35.5); Mean Corpuscular Hemoglobin 28.6 pg (28.0-33.3); Mean Corpuscular Volume 94.3 fL (83.0-100.0); Mean Platelet Volume 9.7 fL (9.4-12.4); Platelet Count 253 K/mcL (140-400); Red Cell Distribution Width 14.6 % (11.5-14.5)
[2017-07-06] MEDS: Naloxone 0.4 MG/ML INJ IVP PRN ×3 (04:38→16:03)
[2017-07-06 04:40] LABS: Chol/HDL Ratio 2.7 (0-4.9)
[2017-07-06 04:52] LABS: Thyroid Stimulating Hormone 1.388 mcIU/mL (0.350-4.840)
[2017-07-06 05:32] LABS: Calcium 8.2 mg/dL (8.6-10.8); Potassium 4.1 mEq/L (3.5-4.5)
[2017-07-06] MEDS: Clindamycin 900 MG/50 ML 900 MG/50 ML IV.SOLN IVPB SCH ×3 (08:24→23:29)
[2017-07-06] MEDS: Multivit/Ca/Min/Fe/FA 1 TAB TABLET PO SCH (08:24)
[2017-07-06] MEDS: Aspirin 81 MG TAB.CHEW PO SCH (08:24)
[2017-07-06] MEDS: Venlafaxine XR (24 HR) 75 MG CAP.ER.24H PO SCH (08:24)
[2017-07-06] MEDS ORDERED: Gentamicin Oint 15 GM TUBE TP SCH (09:00)
[2017-07-06] MEDS ORDERED: Lactobacillus 1 EACH CAP.SPRINK PO SCH (09:00)
--- NOTE | 2017-07-06 10:41 | General Surgery Consult Note ---
Date of Encounter: 07/06/17 Time of Encounter: 10:41 Assessment and Plan (1) Septic arthritis Current Visit: Yes Status: Acute 66F with significant lymphedema, L leg cellulitis, L leg wound with drainage with concern for septic arthritis - consult to orthopedic surgery - cont abx - daily dressing changes: discussed with the patient the need for surgery, but that anything as superficial as a washout would not treat the issue of her infected prosthetic joint. Discussed with patient in very plain language the severity of her condition. She does not want to proceed further with any work related to her knee because she states she would rather than go through the process of a knee replacement, rehab, or even an amputation. Further discussion with the patient revealed that she does not really want to , but just does not want to endure that kind of pain. She reports that she has a long history of depression and she knows that is affecting her choices at this point. She states that her taking so many pills in an attempt to kill herself was related to her no longer wanting to deal with the problem of her knee. appreciate psychiatry recommendations Qualifiers: Septic arthritis location: knee Septic arthritis organism: due to unspecified organism Laterality: left Qualified Code(s): M00.9 - Pyogenic arthritis, unspecified (2) Pressure ulcer of left leg, unstageable Current Visit: No Status: Acute continue dressing changes at this point; will discuss with patient later today concerning surgery with ortho (3) Left leg cellulitis Current Visit: Yes Status: Acute cont with abx regimen History of Present Illness Consult date: 07/06/17 Reason for consult: other (Left Leg wound, drainage) History of present illness: Ms. Roger is a 66 year old female h/o significant lymphedema, OA s/p bilateral TKA who presents with L leg ulcer that has progressed over the last 5 months. She states it started when her original wheel chair was getting repaired and, subsequently, she was placed in a smaller wheelchair with little mobility. In fact she states that for 10 consecutive days she did not leave the chair. The ulcer started as small wound that developed, but eventually healed. However, she has over the last few weeks developed a larger skin wound with active drainage, malodor. She did have an MRI which personally reviewed and interpreted which was concerning for a fluid collection that connected with her Left replaced knee. She was advised to see her orthopedist, but he was not available. Since that time she has developed copious drainage. She now presents with elevated troponins, MESHA, and concern for suicide attempt. General surgery was consulted for management recommendations. Past Med Surg Social Fam HX - Past Medical History Medical history: arthritis, hyperlipidemia, hypertension, other Psychiatric history: depression - Past Surgical History Surgical History: hip replacement, knee replacement, MARY/BSO, other - Social History Smoking Status: Never smoker Smokeless Tobacco Status: No Alcohol use: none Drug use: none - Family History Mother Living Status: Hx Family Cardiac Disorders: Yes Hx Family Respiratory Disorders: No Hx Family Cancer: Yes Hx Family GI Disorders: Yes Hx Family Endocrine Disorder: Yes Hx Family Neuromuscular Disorders: Yes Hx Family Neurologic Disorders: No Hx Family HEENT Disorders: No Hx Family Autoimmune Disorders: No Father Living Status: Hx Family Cardiac Disorders: Yes Hx Family Respiratory Disorders: No Hx Family Cancer: No Hx Family GI Disorders: No Hx Family Endocrine Disorder: No Hx Family Neuromuscular Disorders: No Hx Family Neurologic Disorders: No Hx Family HEENT Disorders: No Hx Family Autoimmune Disorders: No Medications and Allergies CloNIDine HCl 0.1 mg PO BID 07/22/15 [History] Desvenlafaxine Succinate [Pristiq] 50 mg PO QAM 07/22/15 [History] Lisinopril-HCTZ 10-12.5 [Prinzide 10-12.5] 1 tab PO BID 07/22/15 [History] Docusate [Colace] 300 mg PO HS 06/05/16 [History] L. Acidophilus/Pectin, [place] [Acidophilus Probiotic Capsule] 1 each PO DAILY [History] Multivitamin [Multi-Day Vitamins] 1 each PO DAILY 06/05/16 [History] Pseudoephedrine [Sudafed] 60 mg PO TID 06/05/16 [History] Simvastatin [Zocor] 20 mg PO HS 06/05/16 [History] Cyclobenzaprine HCl 10 mg PO TID #28 tablet 08/01/16 [Rx] Collagenase Oint [Santyl] 1 appl TP DAILY 07/05/17 [History] Gentamicin Sulfate [Gentamicin Sulfate] 1 appl TP DAILY 07/05/17 [History] Guaifenesin [Mucinex] 600 mg PO Q12H PRN 07/05/17 [History] Mupirocin [Bactroban Oint] 1 appl TP DAILY 07/05/17 [History] OxyCODONE ER (12 HR) [OxyCONTIN] 80 mg PO Q8H 07/05/17 [History] Oxycodone HCl [Oxycodone HCl] 20 mg PO TID 07/05/17 [History] 3 Allergy/AdvReac Type Severity Reaction Status Date / Time clorazepate dipotassium Allergy Itching Verified 06/05/16 13:56 [From Tranxene T-Tab] atorvastatin [From Lipitor] AdvReac Nausea Verified 06/05/16 13:56 bupropion [From Wellbutrin] AdvReac Agitated Verified 06/05/16 13:56 divalproex sodium AdvReac Vomiting Verified 06/05/16 13:56 [From Depakote] eszopiclone [From Lunesta] AdvReac Headache Verified 06/05/16 13:56 gabapentin AdvReac Blurry Verified 06/05/16 13:56 Vision mirtazapine [From Remeron] AdvReac Confusion Verified 06/05/16 13:56 Nefazodone [From Serzone] AdvReac Confusion Verified 06/05/16 13:56 vancomycin AdvReac Itching Verified 06/05/16 13:56 Review of Systems All systems PM: A 10-system review of systems was performed and is negative for pertinent findings except as documented above in the HPI. General Surgery Exam Initial Vital Signs Temp Pulse Resp BP Pulse Ox 99.2 F 120 20 124/62 92 07/05/17 19:32 07/05/17 19:32 07/05/17 19:32 07/05/17 19:32 07/05/17 19:32 - General physical appearance moderate distress, other (diaphoretic, comprehendible, but speech altered) - Eyes normal ocular movement - ENT normocephalic - Neck no lymphadectomy - Respiratory normal expansion, normal respiratory effort - Cardiovascular Cardiovascular exam: Present: RRR - Abdomen Abdomen general surgery: Present: soft, non tender - Integumentary Integumentary general surgery: Present: warm and dry, diaphoresis, other - Neurologic Present: CN 2-12 grossly intact - Musculoskeletal Present: other (open wound on LLE, malodorous dark green drainage. copious amount of drainage) Exam Initial Vital Signs Temp Pulse Resp BP Pulse Ox 99.2 F 120 20 124/62 92 07/05/17 19:32 07/05/17 19:32 07/05/17 19:32 07/05/17 19:32 07/05/17 19:32 Results - Labs 07/06/17 04:04 07/06/17 04:04 Abnormal lab results WBC 12.7 K/mcL (4.3-11.1) H 07/06/17 04:04 RBC 2.80 M/mcL (3.82-4.97) L 07/06/17 04:04 Hgb 8.0 g/dL (11.5-15.4) L D 07/06/17 04:04 Hct 26.4 % (35.3-44.9) L 07/06/17 04:04 MCHC 30.3 g/dL (31.6-35.5) L 07/06/17 04:04 RDW 14.6 % (11.5-14.5) H 07/06/17 04:04 Neutrophils # 12.6 K/mcL (1.6-8.9) H 07/06/17 00:57 PT 13.6 Seconds (9.4-12.1) H 07/06/17 00:57 D-Dimer 1571 ng/mLFEU (0-500) H 07/06/17 00:57 Sodium 135 mEq/L (136-145) L 07/06/17 04:04 BUN 44 mg/dL (7-20) H 07/06/17 04:04 Creatinine 1.61 mg/dL (0.57-1.11) H 07/06/17 04:04 Est GFR ( Amer) 39 (> 60) L 07/06/17 04:04 Est GFR (Non-Af Amer) 32 (> 60) L 07/06/17 04:04 BUN/Creatinine Ratio 27 (6-26) H 07/06/17 04:04 Glucose 114 mg/dL (70-99) H 07/06/17 04:04 Calcium 8.2 mg/dL (8.6-10.8) L 07/06/17 04:04 Troponin I 0.40 ng/mL (0-0.03) H* 07/06/17 07:00 Albumin 2.9 g/dL (3.5-5.0) L 07/05/17 20:31 Globulin 4.4 g/dL (2.4-3.5) H 07/05/17 20:31 Albumin/Globulin Ratio 0.7 (1.1-2.2) L 07/05/17 20:31 Urine Clarity Cloudy (Clear) A 07/05/17 21:08 Urine Bilirubin Small (Negative) H 07/05/17 21:08 Ur Squamous Epith Cells Many per lpf (None-Few) H 07/05/17 21:08 Hyaline Casts Many per lpf (None-Few) H 07/05/17 21:08 Salicylates < 5.0 mg/dL (15-30) L 07/05/17 20:31 Urine Opiates Screen Positive ng/mL ([place]=674) H 07/05/17 21:08 Acetaminophen < 1.0 mcg/mL (10-30) L 07/05/17 20:31 Diabetes panel 07/06/17 07/06/17 Range/Units 04:04 04:04 Sodium 135 L (136-145) mEq/L Potassium 4.1 (3.5-4.5) mEq/L Chloride 105 (98-109) mEq/L Carbon Dioxide 21 (19-29) mEq/L BUN 44 H (7-20) mg/dL Creatinine 1.61 H (0.57-1.11) mg/dL Glucose 114 H (70-99) mg/dL Hemoglobin A1c 5.0 ( - 5.6) % Calcium 8.2 L (8.6-10.8) mg/dL Triglycerides 57 (< 150) mg/dL HDL Cholesterol 44 (40-59) mg/dL Thyroid panel 07/06/17 Range/Units 04:04 TSH 1.388 (0.350-4.840) mcIU/mL Calcium panel 07/06/17 Range/Units 04:04 Calcium 8.2 L (8.6-10.8) mg/dL Pituitary panel 07/06/17 Range/Units 04:04 Sodium 135 L (136-145) mEq/L Potassium 4.1 (3.5-4.5) mEq/L Chloride 105 (98-109) mEq/L Carbon Dioxide 21 (19-29) mEq/L BUN 44 H (7-20) mg/dL Creatinine 1.61 H (0.57-1.11) mg/dL Glucose 114 H (70-99) mg/dL Calcium 8.2 L (8.6-10.8) mg/dL TSH 1.388 (0.350-4.840) mcIU/mL Adrenal panel 07/06/17 Range/Units 04:04 Sodium 135 L (136-145) mEq/L Potassium 4.1 (3.5-4.5) mEq/L Chloride 105 (98-109) mEq/L Carbon Dioxide 21 (19-29) mEq/L BUN 44 H (7-20) mg/dL Creatinine 1.61 H (0.57-1.11) mg/dL Glucose 114 H (70-99) mg/dL Calcium 8.2 L (8.6-10.8) mg/dL All other labs normal. - Imaging Additional studies: CT, xray, and MRI of LE personally reviewed by me, then discussed with radiology and orthopedic surgery Consult Discharge Plan - Plan Referrals: Javier Barrios MD [Primary Care Provider] -
[2017-07-06] MEDS: Piperacillin/Tazobactam 3.375 GM in 0.9 % Sodium Chloride Mini Bag 100 ML IVPB SCH ×3 (11:13→23:19)
--- NOTE | 2017-07-06 11:36 | Consult Note ---
Date of Encounter: 07/06/17 Time of Encounter: 11:32 Assessment & Recommendation (1) Major depress dis, severe Current visit: Yes Status: Acute Assessment & Recommendation: Client indicated Pristique works best for her but it is not on formulary here. May want to have family bring in her bottle and dispense from her own supply. Effexor is a reasonable substitute in the meantime. Will likely need admitted for treatment of depression and suicidality but need to reassess risk to self once acute medical issues have resolved. History of Present Illness Requesting Physician: Emile Baldwin MD Reason for consult: overdose History of present illness: Ms. Roger is a 66 year old female who was admitted following an overdose on her pain medications. Very difficult to interview today. Sedated. Kept falling asleep. Slurring words. Did admit the overdose was intentional and a suicide attempt. Stated she has been treated for depression since a young age. Hospitalized in past but denies any prior suicide attempts before now. Indicated physical health problems are what prompted this attempt. Has home health but waited until she was alone and took the pills. Has tried multiple medications in the past. Currently prescribed Pristique by PCP. CC: Emile Baldwin MD Past Med Surg Social Fam HX - Past Medical History Medical history: arthritis, hyperlipidemia, hypertension, other - Past Psychiatric History Psychiatric history: Reports: depression, previous psychiatric hospitalization Family psychiatric history: Unknown Family History of Suicide: Unknown - Past Surgical History Surgical History: hip replacement, knee replacement, MARY/BSO, other - Social History Smoking Status: Never smoker Smokeless Tobacco Status: No Alcohol use: none Drug use: none - Family History Mother Living Status: Hx Family Cardiac Disorders: Yes Hx Family Respiratory Disorders: No Hx Family Cancer: Yes Hx Family GI Disorders: Yes Hx Family Endocrine Disorder: Yes Hx Family Neuromuscular Disorders: Yes Hx Family Neurologic Disorders: No Hx Family HEENT Disorders: No Hx Family Autoimmune Disorders: No Father Living Status: Hx Family Cardiac Disorders: Yes Hx Family Respiratory Disorders: No Hx Family Cancer: No Hx Family GI Disorders: No Hx Family Endocrine Disorder: No Hx Family Neuromuscular Disorders: No Hx Family Neurologic Disorders: No Hx Family HEENT Disorders: No Hx Family Autoimmune Disorders: No Medications & Allergies CloNIDine HCl 0.1 mg PO BID 07/22/15 [History] Desvenlafaxine Succinate [Pristiq] 50 mg PO QAM 07/22/15 [History] Lisinopril-HCTZ 10-12.5 [Prinzide 10-12.5] 1 tab PO BID 07/22/15 [History] Docusate [Colace] 300 mg PO HS 06/05/16 [History] L. Acidophilus/Pectin, [place] [Acidophilus Probiotic Capsule] 1 each PO DAILY [History] Multivitamin [Multi-Day Vitamins] 1 each PO DAILY 06/05/16 [History] Pseudoephedrine [Sudafed] 60 mg PO TID 06/05/16 [History] Simvastatin [Zocor] 20 mg PO HS 06/05/16 [History] Cyclobenzaprine HCl 10 mg PO TID #28 tablet 08/01/16 [Rx] Collagenase Oint [Santyl] 1 appl TP DAILY 07/05/17 [History] Gentamicin Sulfate [Gentamicin Sulfate] 1 appl TP DAILY 07/05/17 [History] Guaifenesin [Mucinex] 600 mg PO Q12H PRN 07/05/17 [History] Mupirocin [Bactroban Oint] 1 appl TP DAILY 07/05/17 [History] OxyCODONE ER (12 HR) [OxyCONTIN] 80 mg PO Q8H 07/05/17 [History] Oxycodone HCl [Oxycodone HCl] 20 mg PO TID 07/05/17 [History] 3 Allergy/AdvReac Type Severity Reaction Status Date / Time clorazepate dipotassium Allergy Itching Verified 06/05/16 13:56 [From Tranxene T-Tab] atorvastatin [From Lipitor] AdvReac Nausea Verified 06/05/16 13:56 bupropion [From Wellbutrin] AdvReac Agitated Verified 06/05/16 13:56 divalproex sodium AdvReac Vomiting Verified 06/05/16 13:56 [From Depakote] eszopiclone [From Lunesta] AdvReac Headache Verified 06/05/16 13:56 gabapentin AdvReac Blurry Verified 06/05/16 13:56 Vision mirtazapine [From Remeron] AdvReac Confusion Verified 06/05/16 13:56 Nefazodone [From Serzone] AdvReac Confusion Verified 06/05/16 13:56 vancomycin AdvReac Itching Verified 06/05/16 13:56 Review of Systems Constitutional: Denies: fever, chills, weakness, weight change Eyes: Denies: eye pain, vision change Ears, Nose, Throat: Denies: ear pain, throat pain, dental pain, hearing loss, congestion Cardiovascular: Denies: chest pain, palpitations, dyspnea on exertion Respiratory: Denies: cough, dyspnea, wheezes Gastrointestinal: Denies: abdominal pain, nausea, vomiting, diarrhea, constipation Genitourinary male: Denies: urgency, dysuria, frequency, genital lesions Genitourinary female: Denies: urgency, dysuria, frequency, abnormal menses, dyspareunia Musculoskeletal: Denies: joint swelling, joint pain Integumentary: Denies: rash, lesions, pruritus Neurological: Denies: headache, weakness, numbness, memory loss Endocrine: Denies: fatigue, heat or cold intolerance Hematologic/Lymphatic: Denies: easy bruising, lymphadenopathy Allergic/Immunologic: Denies: urticaria, itchy eyes Mental Status Exam Patient orientation: Yes Person, Yes Place Level of alertness: Sedated Patient appearance: Disheveled Behavior: calm Psychomotor activity: Slowed Eye contact: Minimal Contact Mood description: Depressed Affect description: congruent with mood Speech pattern: Slurred Speech volume: Soft/Quiet Thought process: Linear Thought content: Yes Suicidal ideation, No Homicidal ideation, No Overt delusions Perceptual disturbances: No Auditory hallucinations, No Visual hallucinations Memory description: Grossly Intact Patient reliability: Questionable Historian Intelligence estimate: Average Judgment: Limited Insight: Partial Results - Vital Signs Vital signs: Temp Pulse Resp BP Pulse Ox 97.9 F 88 15 100/55 93 07/06/17 11:09 07/06/17 11:09 07/06/17 11:09 07/06/17 11:09 07/06/17 11:09 - Labs Labs: Laboratory Last Values WBC 12.7 K/mcL (4.3-11.1) H 07/06/17 04:04 RBC 2.80 M/mcL (3.82-4.97) L 07/06/17 04:04 Hgb 8.0 g/dL (11.5-15.4) L D 07/06/17 04:04 Hct 26.4 % (35.3-44.9) L 07/06/17 04:04 MCV 94.3 fL (83.0-100.0) 07/06/17 04:04 MCH 28.6 pg (28.0-33.3) 07/06/17 04:04 MCHC 30.3 g/dL (31.6-35.5) L 07/06/17 04:04 RDW 14.6 % (11.5-14.5) H 07/06/17 04:04 Plt Count 253 K/mcL (140-400) 07/06/17 04:04 MPV 9.7 fL (9.4-12.4) 07/06/17 04:04 Immature Gran % 0.5 % (0-4) 07/06/17 00:57 Seg Neutrophils % 86.3 % 07/06/17 00:57 Lymphocytes % 6.8 % 07/06/17 00:57 Monocytes % 6.2 % 07/06/17 00:57 Eosinophils % 0.1 % 07/06/17 00:57 Basophils % 0.1 % 07/06/17 00:57 Neutrophils # 12.6 K/mcL (1.6-8.9) H 07/06/17 00:57 Lymphocytes # 1.0 K/mcL (0.6-4.6) 07/06/17 00:57 Monocytes # 0.9 K/mcL (0.0-1.3) 07/06/17 00:57 Eosinophils # 0.0 K/mcL (0.0-0.6) 07/06/17 00:57 Basophils # 0.0 K/mcL (0.0-0.2) 07/06/17 00:57 PT 13.6 Seconds (9.4-12.1) H 07/06/17 00:57 INR 1.3 07/06/17 00:57 APTT 29.0 Seconds (26.0-36.0) 07/06/17 00:57 D-Dimer 1571 ng/mLFEU (0-500) H 07/06/17 00:57 Sodium 135 mEq/L (136-145) L 07/06/17 04:04 Potassium 4.1 mEq/L (3.5-4.5) 07/06/17 04:04 Chloride 105 mEq/L (98-109) 07/06/17 04:04 Carbon Dioxide 21 mEq/L (19-29) 07/06/17 04:04 BUN 44 mg/dL (7-20) H 07/06/17 04:04 Creatinine 1.61 mg/dL (0.57-1.11) H 07/06/17 04:04 Est GFR ( Amer) 39 (> 60) L 07/06/17 04:04 Est GFR (Non-Af Amer) 32 (> 60) L 07/06/17 04:04 BUN/Creatinine Ratio 27 (6-26) H 07/06/17 04:04 Glucose 114 mg/dL (70-99) H 07/06/17 04:04 Est Mean Plasma Glucose 97 mg/dl 07/06/17 04:04 Hemoglobin A1c 5.0 % (-5.6) 07/06/17 04:04 Calculated Osmolality 292 (280-300) 07/06/17 04:04 Lactic Acid 0.6 mmol/L (0.5-2.2) 07/06/17 04:04 Calcium 8.2 mg/dL (8.6-10.8) L 07/06/17 04:04 Phosphorus 4.1 mg/dL (2.3-4.7) 07/05/17 20:28 Magnesium 2.0 mg/dL (1.6-2.6) 07/06/17 00:57 Total Bilirubin 0.5 mg/dL (0.2-1.2) 07/05/17 20:31 Direct Bilirubin 0.2 mg/dL (0.0-0.5) 07/05/17 20:31 Indirect Bilirubin 0.3 mg/dL (0.0-1.2) 07/05/17 20:31 AST 22 Units/L (5-34) 07/05/17 20:31 ALT 24 Units/L (0-55) 07/05/17 20:31 Alkaline Phosphatase 88 Units/L (38-126) 07/05/17 20:31 Troponin I 0.40 ng/mL (0-0.03) H* 07/06/17 07:00 B-Natriuretic Peptide 84 pg/mL (0-100) 07/06/17 00:57 Serum Total Protein 7.3 g/dL (6.0-8.3) 07/05/17 20:31 Albumin 2.9 g/dL (3.5-5.0) L 07/05/17 20:31 Globulin 4.4 g/dL (2.4-3.5) H 07/05/17 20:31 Albumin/Globulin Ratio 0.7 (1.1-2.2) L 07/05/17 20:31 Triglycerides 57 mg/dL (< 150) 07/06/17 04:04 Cholesterol 118 mg/dL (< 200) 07/06/17 04:04 LDL Cholesterol, Calc 63 mg/dL (0-99) 07/06/17 04:04 VLDL Cholesterol, Calc 11 mg/dL (< 31) 07/06/17 04:04 HDL Cholesterol 44 mg/dL (40-59) 07/06/17 04:04 Cholesterol/HDL Ratio 2.7 (0-4.9) 07/06/17 04:04 TSH 1.388 mcIU/mL (0.350-4.840) 07/06/17 04:04 Urine Color Dark Yellow (Yellow) 07/05/17 21:08 Urine Clarity Cloudy (Clear) A 07/05/17 21:08 Urine pH 5.5 pH Units (5.0-8.0) 07/05/17 21:08 Ur Specific [place] 1.025 (1.010-1.025) 07/05/17 21:08 Urine Protein Trace mg/dL (Neg-Trace) 07/05/17 21:08 Urine Glucose (UA) Normal mg/dL (Normal) 07/05/17 21:08 Urine Ketones Negative mg/dL (Negative) 07/05/17 21:08 Urine Blood Negative (Negative) 07/05/17 21:08 Urine Nitrite Negative (Negative) 07/05/17 21:08 Urine Bilirubin Small (Negative) H 07/05/17 21:08 Urine Urobilinogen Normal mg/dL (Normal) 07/05/17 21:08 Ur Leukocyte Esterase Negative (Negative) 07/05/17 21:08 Urine Microscopic RBC 0-3 per hpf (0-3) 07/05/17 21:08 Urine Microscopic WBC 0-3 per hpf (0-3) 07/05/17 21:08 Ur Squamous Epith Cells Many per lpf (None-Few) H 07/05/17 21:08 Urine Bacteria Few per hpf (None-Few) 07/05/17 21:08 Hyaline Casts Many per lpf (None-Few) H 07/05/17 21:08 Salicylates < 5.0 mg/dL (15-30) L 07/05/17 20:31 Urine Opiates Screen Positive ng/mL (Clanvk=852) H 07/05/17 21:08 Acetaminophen < 1.0 mcg/mL (10-30) L 07/05/17 20:31 Ur Barbiturates Screen Negative ng/mL (Soquts=705) 07/05/17 21:08 Ur Phencyclidine Scrn Negative ng/mL (Cutoff=25) 07/05/17 21:08 Ur Amphetamines Screen Negative ng/mL (Frsyvc=7783) 07/05/17 21:08 U Benzodiazepines Scrn Negative ng/mL (Zdkfjj=131) 07/05/17 21:08 Urine Cocaine Screen Negative ng/mL (Cutoff= 300) 07/05/17 21:08 U Marijuana (THC) Screen Negative ng/mL (Cutoff = 50) 07/05/17 21:08 Ethyl Alcohol < 10 mg/dL (0-10) 07/05/17 20:31 - Impressions Impressions Knee X-Ray 07/06/17 09:39 IMPRESSION: Radiographic findings highly suspicious for septic arthritis/osteomyelitis. D/ / Crow Cannon MD / Crow Cannon MD Interpreting Provider: Crow Cannon MD Consult Discharge Plan - Plan Referrals: Javier Barrios MD [Primary Care Provider] -
[2017-07-06 15:00] LABS: Heparin anti-factor XA UFH 0.6 IU/mL (0.30-0.70)
--- NOTE | 2017-07-06 15:03 | Cardiology Consult Note ---
Addendum entered and electronically signed by Theresa Roberson CNP 07/06/17 17: 22: Patient is not a candidate for cardiac rehab phase one consultation due to clinical condition. Original Note: <Theresa Roberson - Last Filed: 07/06/17 15:26> Date of Encounter: 07/06/17 Time of Encounter: 14:00 Assessment and Plan (1) Septic shock Current Visit: Yes Status: Acute Per cardiology: -Admitted with septic shock. -On ATB -Management per primary service. (2) Suicide attempt Current Visit: Yes Status: Acute Per cardiology: -ADmitted after suicide attempt by ingesting multiple oxycodone tablets. -Psychiatry consulted. -Management per primary and psychiatry services. (3) Acute kidney injury Current Visit: Yes Status: Acute Per cardiology: -Creatinine 1.71 on admission. -Baseline 0.8-1.2. -Management per primary services. (4) Elevated troponin Current Visit: Yes Status: Acute Per cardiology: -Troponin 0.2, 0.44, 0.4. -Troponins elevated in the setting of septic shock, suicide attempt, and MESHA. -Deneis chest pain. -TTE pending. -Denies previous cardiac history. -On asa and heparin drip. Not on beta lesvia due to hypotension. -Further recommendations pending TTE. -Patient is not a good candidate for invasive cardiac procedures due to sepsis, MESHA, and suicidal ideation. -Will continue to monitor. Discussion w patient/family: The assessment and plan as outlined above was discussed with the patient who expressed understanding and agreement. All questions were answered. Thank you for involving us in the care of your patient. Please call with any questions. Discussed and reviewed with . History of Present Illness Consult date: 07/06/17 Requesting physician: Fredrick Eubanks Consult reason: elevated troponin Chief complaint: suicide attempt History of present illness: Ms. Roger is a 66 year old female with a relevant past medical history of depression, hyperlipidemia, anxiety, fibromyalgia, arthritis, s/p knee replacement. Patient presented to [facility] after an intentional overdose attempt. Patient stated she wanted to due to her pain/problems with knee. Patient difficult to obtain history from at time of assessment due to patient kept falling asleep. Patient did deny chest pain or increased shortness of breath. Patient admitted to increased fatigue. Past Med Surg Social Fam HX - Past Medical History Source: patient Medical history: arthritis, hyperlipidemia, hypertension, other Psychiatric history: depression - Past Surgical History Surgical History: hip replacement, knee replacement, MARY/BSO, other - Social History Smoking Status: Never smoker Smokeless Tobacco Status: No Alcohol use: none Drug use: none - Family History Mother Living Status: Hx Family Cardiac Disorders: Yes Hx Family Respiratory Disorders: No Hx Family Cancer: Yes Hx Family GI Disorders: Yes Hx Family Endocrine Disorder: Yes Hx Family Neuromuscular Disorders: Yes Hx Family Neurologic Disorders: No Hx Family HEENT Disorders: No Hx Family Autoimmune Disorders: No Father Living Status: Hx Family Cardiac Disorders: Yes Hx Family Respiratory Disorders: No Hx Family Cancer: No Hx Family GI Disorders: No Hx Family Endocrine Disorder: No Hx Family Neuromuscular Disorders: No Hx Family Neurologic Disorders: No Hx Family HEENT Disorders: No Hx Family Autoimmune Disorders: No Medications and Allergies CloNIDine HCl 0.1 mg PO BID 07/22/15 [History] Desvenlafaxine Succinate [Pristiq] 50 mg PO QAM 07/22/15 [History] Lisinopril-HCTZ 10-12.5 [Prinzide 10-12.5] 1 tab PO BID 07/22/15 [History] Docusate [Colace] 300 mg PO HS 06/05/16 [History] L. Acidophilus/Pectin, [place] [Acidophilus Probiotic Capsule] 1 each PO DAILY [History] Multivitamin [Multi-Day Vitamins] 1 each PO DAILY 06/05/16 [History] Pseudoephedrine [Sudafed] 60 mg PO TID 06/05/16 [History] Simvastatin [Zocor] 20 mg PO HS 06/05/16 [History] Cyclobenzaprine HCl 10 mg PO TID #28 tablet 08/01/16 [Rx] Collagenase Oint [Santyl] 1 appl TP DAILY 07/05/17 [History] Gentamicin Sulfate [Gentamicin Sulfate] 1 appl TP DAILY 07/05/17 [History] Guaifenesin [Mucinex] 600 mg PO Q12H PRN 07/05/17 [History] Mupirocin [Bactroban Oint] 1 appl TP DAILY 07/05/17 [History] OxyCODONE ER (12 HR) [OxyCONTIN] 80 mg PO Q8H 07/05/17 [History] Oxycodone HCl [Oxycodone HCl] 20 mg PO TID 07/05/17 [History] 3 Allergy/AdvReac Type Severity Reaction Status Date / Time clorazepate dipotassium Allergy Itching Verified 06/05/16 13:56 [From Tranxene T-Tab] atorvastatin [From Lipitor] AdvReac Nausea Verified 06/05/16 13:56 bupropion [From Wellbutrin] AdvReac Agitated Verified 06/05/16 13:56 divalproex sodium AdvReac Vomiting Verified 06/05/16 13:56 [From Depakote] eszopiclone [From Lunesta] AdvReac Headache Verified 06/05/16 13:56 gabapentin AdvReac Blurry Verified 06/05/16 13:56 Vision mirtazapine [From Remeron] AdvReac Confusion Verified 06/05/16 13:56 Nefazodone [From Serzone] AdvReac Confusion Verified 06/05/16 13:56 vancomycin AdvReac Itching Verified 06/05/16 13:56 All Systems Review: A 10-system review of systems was performed and is negative for pertinent findings except as documented above in the HPI. - Constitutional Constitutional: fatigue - Cardiovascular Cardiovascular: as per HPI - Musculoskeletal Musculoskeletal: other (knee pain) - Psychiatric Psychiatric: depression, other (suicidal ideation) Physical Examination Vital Signs, Last 4 Hours Temp Pulse Resp BP Pulse Ox 07/06/17 11:28 89 07/06/17 11:09 97.9 F 88 15 100/55 93 General: Other (Lethargic, falls asleep mid sentence. ) HEENT: Atraumatic, Normocephaly, Mucus Membranes Moist Neck: No JVD, Normal carotid pulses Cardiac: Reg Rate and Rhythm, Normal S1 and S2, No Murmur Lungs: Normal Breath Sounds, No Wheeze, Rales, Rhonchi Neuro: Other (Lethargic ) Abdomen: Soft, Non-Tender Skin: Other (Wound noted to left lower extremity. ) Musculoskeletal: No Chest Wall Tenderness Extremities: No Clubbing, No Cyanosis, Normal Pulses, Other (Lymphedema noted to bilateral lower extremities. ) Results 07/06/17 04:04 07/06/17 04:04 Lab Results Impressions Chest X-Ray 07/05/17 19:50 IMPRESSION: No acute process. D/ / Mariano Robles MD / Mariano Robles MD Interpreting Provider: Mariano Robles MD Lower Extremity CT 07/05/17 20:02 IMPRESSION: 1. Status post left total knee arthroplasty with a moderate joint effusion. Age-indeterminate erosion of the posterior aspect of the patella. Widening at the bone metal interface of the anterior distal femur and tibial tray. Findings are concerning for septic arthritis and osteomyelitis is not excluded. Please consider arthrocentesis. Also recommend radiographs to compare with previous studies. 2. Collection of gas and fluid in the lateral subcutaneous fat at the level of the distal femur suspicious for an abscess. 3. Separate collections in the medial subcutaneous fat at the level of the distal femur and proximal tibia also may represent abscesses although hematomas are also possible. 4. Severe diffuse subcutaneous fat stranding compatible with cellulitis versus lymphedema. D/ / Ganga Vallejo MD / Ganga Vallejo MD Interpreting Provider: Ganga Vallejo MD Head CT 07/06/17 02:14 IMPRESSION: Stable negative CT brain with no acute intracranial abnormality. D/ / Jia Casillas MD / Jia Casillas MD Interpreting Provider: Jia Casillas MD Pulmonary Perfusion Imaging 07/06/17 03:15 IMPRESSION: Very low probability for pulmonary embolism. D/ / Teo Arredondo MD / Teo Arredondo MD Interpreting Provider: Teo Arredondo MD Knee X-Ray 07/06/17 09:39 IMPRESSION: Radiographic findings highly suspicious for septic arthritis/osteomyelitis. D/ / Crow Cannon MD / Crow Cannon MD Interpreting Provider: Crow Cannon MD Active Medications Acetaminophen (Tylenol) 650 mg PO Q6HR PRN PRN Reason: Mild Pain (1-3) Stop: 01/04/18 23:59 Albuterol/Ipratropium (Duoneb) 3 ml IH [id number] PRN PRN Reason: Shortness Of Breath/Wheezing Stop: 01/05/18 02:09 Aspirin (Aspirin) 81 mg PO DAILY ROSIO Stop: 01/05/18 09:01 Last Admin: 07/06/17 08:24 Dose: 81 mg Collagenase (Santyl) 1 appl TP DAILY ROSIO PRN Reason: Protocol Stop: 01/05/18 21:01 Docusate Sodium (Colace) 300 mg PO HS ROSIO PRN Reason: Protocol Stop: 01/05/18 21:01 Gentamicin Sulfate (Garamycin) 1 appl TP DAILY [facility]IO Stop: 01/05/18 21:01 Heparin Sodium (Porcine) (Heparin) 9,000 unit IVP Q6HR PRN PRN Reason: SEE COMMENTS Stop: 01/05/18 02:03 Heparin Sodium (Porcine) (Heparin) 4,500 unit IVP Q6H PRN PRN Reason: SEE COMMENTS Stop: 01/05/18 02:03 Linezolid/Dextrose (Zyvox Premix 600mg/300ml) 600 mg in 300 mls @ 150 mls/hr IVPB Q12H ROSIO Stop: 01/04/18 22:01 Last Infusion: 07/06/17 14:04 Dose: Infused Clindamycin Phosphate/Dextrose (Cleocin Premix 900 Mg/50 Ml) 900 mg in 50 mls @ 50 mls/hr IVPB Q8HR [facility]IO Stop: 01/05/18 08:01 Last Infusion: 07/06/17 08:58 Dose: Infused Piperacillin Sod/Tazobactam (Sod 3.375 gm/ Sodium Chloride) 100 mls @ 25 mls/ hr IVPB Q8HR ROSIO Stop: 01/05/18 08:01 Last Admin: 07/06/17 11:13 Dose: 25 mls/hr Heparin Sodium/Dextrose (Heparin 25,000 Unit/500 Ml D5w) 25,000 unit in 500 mls @ 36.512 mls/hr IVC .[id number] ROSIO; 14 UNIT/KG/HR PRN Reason: Protocol Stop: 01/05/18 02:16 Last Admin: 07/06/17 03:22 Dose: 14 unit/kg/hr, 36.512 mls/hr Sodium Chloride (0.9 % Sodium Chloride) 1,000 mls @ 125 mls/hr IVC .Q8H [facility] Stop: 01/05/18 06:16 Lactobacillus Acidophilus/Rhamnosus (Culturelle) 1 each PO DAILY [facility] Stop: 01/05/18 09:01 Last Admin: 07/06/17 08:24 Dose: 1 each Morphine Sulfate (Morphine Sulfate) 2 mg IVP Q4HR PRN PRN Reason: Severe Pain (7-10) Stop: 01/04/18 23:59 Multivitamins/Calcium (Thera M Plus) 1 tab PO DAILY [facility] Stop: 01/05/18 09:01 Last Admin: 07/06/17 08:24 Dose: 1 tab Mupirocin (Bactroban Oint) 1 appl TP DAILY [facility] Stop: 01/05/18 21:01 Naloxone HCl (Narcan) 0.4 mg IVP Q2MIN PRN PRN Reason: Opioid Reversal Stop: 01/04/18 23:59 Last Admin: 07/06/17 06:28 Dose: 0.4 mg Ondansetron HCl (Zofran) 4 mg IVP Q8HR PRN PRN Reason: Nausea And Vomiting Stop: 01/04/18 23:59 Simvastatin (Zocor) 20 mg PO HS [facility] PRN Reason: Protocol Stop: 01/05/18 01:46 Last Admin: 07/06/17 02:51 Dose: 20 mg Venlafaxine HCl (Effexor Xr) 75 mg PO DAILY [facility] Stop: 01/05/18 09:01 Last Admin: 07/06/17 08:24 Dose: 75 mg Laboratory Tests 07/26/16 07/30/16 07/05/17 14:07 06:15 20:28 WBC Hgb Creatinine 0.84 1.03 Troponin I 0.20 H* 07/05/17 07/05/17 07/06/17 20:31 20:31 00:57 WBC 17.0 H Hgb Creatinine 1.71 H Troponin I 0.44 H* 07/06/17 07/06/17 07/06/17 00:57 00:57 07:00 WBC Hgb 9.6 L Creatinine 1.64 H Troponin I 0.40 H* 07/06/17 13:57 WBC Hgb Creatinine Troponin I 0.23 H* - Imaging and Cardiology Chest Xray: report reviewed Echo: pending - EKG Interpretation EKG results cardiology: personally reviewed (ECG with sinus tachycardia, HR 102. ), other (Telemetry reviewed with average HR previous 12 hours noted to be 93, sinus rhythm. PACS noted.) Consult Discharge Plan - Plan Referrals: Javier Barrios MD [Primary Care Provider] - <Wayne Fraire - Last Filed: 07/07/17 11:51> Date of Encounter: 07/07/17 - Attending Attestation I have personally performed a face to face evaluation on this patient. I have reviewed and agree with the care plan. History and Exam by me shows: I have personally performed a face to face evaluation on this patient. I have reviewed and agree with the care plan. History and Exam by me shows: 1. Elevated troponin, suspect demand ischemia, poor renal clearance, denies chest pain, pressure or shortness of breath, echo shows no new segmental wall motion abnormalites, recommend provacative stress imaging when sepsis and MESHA have resolved, can be done as outpatient. 2. Suicidal Ideation: unsuccessful suicide attempt, with elective overdose of oxycodone, remains somewhat lethargic, note psych consult. 3. Sepsis; Left knee abscess, post L knee replacement, on IV gent 4. Acute Kidney injury with elevation creatine to 1.7 from .8, following with rehydration. Assessment and Plan Discussion w patient/family: The assessment and plan as outlined above was discussed with the patient and/or family members who expressed understanding and agreement. All questions were answered. Thank you for involving us in the care of your patient. Please call with any questions. History of Present Illness History of present illness: Ms. Roger is a 66 year old female All Systems Review: A 10-system review of systems was performed and is negative for pertinent findings except as documented above in the HPI. Physical Examination Vital Signs, Last 4 Hours Temp Pulse Resp BP Pulse Ox 07/06/17 20:00 97 07/06/17 18:59 98.6 F 92 16 109/51 98 Results 07/07/17 09:33 07/07/17 09:33 Lab Results 07/06/17 07/06/17 07/06/17 04:04 04:04 07:00 WBC 12.7 H Hgb 8.0 L D Hct 26.4 L Plt Count 253 APTT Sodium 135 L Potassium 4.1 Chloride 105 Carbon Dioxide 21 BUN 44 H Creatinine 1.61 H Glucose 114 H Calcium 8.2 L Troponin I 0.40 H* TSH 1.388 07/06/17 07/06/17 07/06/17 11:18 13:57 14:09 WBC Hgb Hct Plt Count APTT 110.0 H D 126.0 H* Sodium Potassium Chloride Carbon Dioxide BUN Creatinine Glucose Calcium Troponin I 0.23 H* TSH 07/06/17 21:55 WBC Hgb Hct Plt Count APTT 50.4 H D Sodium Potassium Chloride Carbon Dioxide BUN Creatinine Glucose Calcium Troponin I TSH
[2017-07-06] MEDS: 0.9 % Sodium Chloride 1,000 ML IVC SCH ×2 (16:04→23:33)
--- NOTE | 2017-07-06 18:07 | Internal Med Progress Note ---
Date of Encounter: 07/06/17 Time of Encounter: 19:20 - Assessment and plan (1) Suicidal ideation Current Visit: Yes Status: Acute (2) Left leg cellulitis Current Visit: Yes Status: Acute (3) Elevated d-dimer Current Visit: Yes Status: Acute - Time Spent With Patient Orthopedic surgery recommended aspiration of her left knee, patient refused, about she has psychiatry input restarting antipsychotic medication. May consider BuSpar as augmentation. Insulin sliding scale. Start regular diet, protein supplement, heaviness wound care adding zinc and vitamin C. Will discuss with patient again tomorrow about procedure. May consider spiritual care consult. If Patient agree, suicidal precautions 25 - 35 minutes - Subjective Interval history: Patient continue to have suicidal ideation. Patient denies any chest pain or shortness of breath. Patient stated that she had bowel movement yesterday. Patient is feeling hungry - Constitutional Vitals: Temp Pulse Resp BP Pulse Ox 98.3 F 83 18 110/72 100 07/06/17 16:08 07/06/17 16:15 07/06/17 16:08 07/06/17 16:08 07/06/17 16:08 General appearance: Present: A&O X 3, morbidly obese, no acute distress, answers questions appropriately - Head Head exam: Present: atraumatic, normocephalic - Neck Neck exam general surgery: Present: supple, trachea midline. Absent: lymphadenopathy - Respiratory Respiratory exam: Present: CTAB. Absent: accessory muscle use, rales, rhonchi, wheezes - Cardiovascular Cardiovascular exam: Present: RRR, +S1, +S2. Absent: diastolic murmur, gallop, rubs, systolic murmur - GI/Abdominal GI/Abdominal exam: Present: normal bowel sounds, soft, no peritoneal signs. Absent: distended, tenderness - Extremities Exam Extremities exam: Present: warm, radial pulses palpable and symmetrical. Absent : calf tenderness, cyanotic, pedal edema Internal Medicine: Result - Labs CBC & Chem 7: 07/06/17 04:04 07/06/17 04:04 Labs: Short CBC 07/06/17 Range/Units 04:04 WBC 12.7 H (4.3-11.1) K/mcL Hgb 8.0 L D (11.5-15.4) g/dL Hct 26.4 L (35.3-44.9) % Plt Count 253 (140-400) K/mcL BMP 07/06/17 04:04 Sodium 135 L Potassium 4.1 Chloride 105 Carbon Dioxide 21 BUN 44 H Creatinine 1.61 H Glucose 114 H Calcium 8.2 L Cardiac Enzymes 07/06/17 07/06/17 Range/Units 07:00 13:57 Troponin I 0.40 H* 0.23 H* (0-0.03) ng/mL - ABG Interpretation ABG results: PT/INR, D-dimer PT 13.6 Seconds (9.4-12.1) H 07/06/17 00:57 D-Dimer 1571 ng/mLFEU (0-500) H 07/06/17 00:57 - Impressions Impressions Knee X-Ray 07/06/17 09:39 IMPRESSION: Radiographic findings highly suspicious for septic arthritis/osteomyelitis. D/ / Crow Cannon MD / Crow Cannon MD Interpreting Provider: Crow Cannon MD Consult Discharge Plan - Plan Referrals: Javier Barrios MD [Primary Care Provider] -
--- NOTE | 2017-07-06 19:01 | Orthopedic Consult Note ---
Date of Encounter: 07/06/17 Time of Encounter: 12:00 Assessment and Plan (1) Left leg cellulitis Current Visit: Yes Status: Acute I had a long discussion with Nadiya regarding her left leg wound and knee. Recommended an aspiration of her knee. After multiple discussions, she is refusing an aspiration, and also refuses any invasive treatment for her knee. At this point, no orthopedic surgical intervention is planned, and would recommend continuing antibiotics and wound care she is receiving. She can follow up with Dr King for her knee. History of Present Illness Chief complaint: L leg infection HPI: Ms. Roger is a 66 year old female admitted following a suicide attempt with a draining left leg wound and cellulitis. She has a history of left total knee replacement done by Dr King in [place] approximately 15 years ago. She does have leg pain and difficulty with ambulation due to the infection. She been having wound care with dressing changes for the wound. Past Med Surg Social Fam HX - Past Medical History Medical history: arthritis, hyperlipidemia, hypertension, other Psychiatric history: depression - Past Surgical History Surgical History: hip replacement, knee replacement, MARY/BSO, other - Social History Smoking Status: Never smoker Smokeless Tobacco Status: No Alcohol use: none Drug use: none - Family History Mother Living Status: Hx Family Cardiac Disorders: Yes Hx Family Respiratory Disorders: No Hx Family Cancer: Yes Hx Family GI Disorders: Yes Hx Family Endocrine Disorder: Yes Hx Family Neuromuscular Disorders: Yes Hx Family Neurologic Disorders: No Hx Family HEENT Disorders: No Hx Family Autoimmune Disorders: No Father Living Status: Hx Family Cardiac Disorders: Yes Hx Family Respiratory Disorders: No Hx Family Cancer: No Hx Family GI Disorders: No Hx Family Endocrine Disorder: No Hx Family Neuromuscular Disorders: No Hx Family Neurologic Disorders: No Hx Family HEENT Disorders: No Hx Family Autoimmune Disorders: No Medications and Allergies CloNIDine HCl 0.1 mg PO BID 07/22/15 [History] Desvenlafaxine Succinate [Pristiq] 50 mg PO QAM 07/22/15 [History] Lisinopril-HCTZ 10-12.5 [Prinzide 10-12.5] 1 tab PO BID 07/22/15 [History] Docusate [Colace] 300 mg PO HS 06/05/16 [History] L. Acidophilus/Pectin, [place] [Acidophilus Probiotic Capsule] 1 each PO DAILY [History] Multivitamin [Multi-Day Vitamins] 1 each PO DAILY 06/05/16 [History] Pseudoephedrine [Sudafed] 60 mg PO TID 06/05/16 [History] Simvastatin [Zocor] 20 mg PO HS 06/05/16 [History] Cyclobenzaprine HCl 10 mg PO TID #28 tablet 08/01/16 [Rx] Collagenase Oint [Santyl] 1 appl TP DAILY 07/05/17 [History] Gentamicin Sulfate [Gentamicin Sulfate] 1 appl TP DAILY 07/05/17 [History] Guaifenesin [Mucinex] 600 mg PO Q12H PRN 07/05/17 [History] Mupirocin [Bactroban Oint] 1 appl TP DAILY 07/05/17 [History] OxyCODONE ER (12 HR) [OxyCONTIN] 80 mg PO Q8H 07/05/17 [History] Oxycodone HCl [Oxycodone HCl] 20 mg PO TID 07/05/17 [History] 3 Allergy/AdvReac Type Severity Reaction Status Date / Time clorazepate dipotassium Allergy Itching Verified 06/05/16 13:56 [From Tranxene T-Tab] atorvastatin [From Lipitor] AdvReac Nausea Verified 06/05/16 13:56 bupropion [From Wellbutrin] AdvReac Agitated Verified 06/05/16 13:56 divalproex sodium AdvReac Vomiting Verified 06/05/16 13:56 [From Depakote] eszopiclone [From Lunesta] AdvReac Headache Verified 06/05/16 13:56 gabapentin AdvReac Blurry Verified 06/05/16 13:56 Vision mirtazapine [From Remeron] AdvReac Confusion Verified 06/05/16 13:56 Nefazodone [From Serzone] AdvReac Confusion Verified 06/05/16 13:56 vancomycin AdvReac Itching Verified 06/05/16 13:56 All Systems Reviewed: A 10-system review of systems was performed and is negative for pertinent findings except as documented above in the HPI. Physical Exam - Constitutional Vitals: Temp Pulse Resp BP Pulse Ox 98.3 F 83 18 116/61 100 07/06/17 16:08 07/06/17 16:15 07/06/17 16:08 07/06/17 18:18 07/06/17 16:08 General appearance IM: A&O X 3 Exam: Consult Exam: Constitutional -Vitals reviewed -Morbidly obese Diaphoretic Psychiatric -The patient is alert and oriented x 3. Recent suicide attempt Respiratory: -Respiratory effort normal Abdomen: -Soft abdomen -Non tender -Non distended: Left upper extremity: -No deformities. The overlying skin is intact. No obvious signs of acute trauma. -No tenderness to palpation throughout. -No significant pain with passive motion of the shoulder, elbow, wrist, and fingers within the limits of the bed. -Able to make an "OK" sign, cross the index and long fingers, and extend the thumb. -Sensation grossly intact to light touch throughout the median, radial, and ulnar distributions. -Radial pulse is present; Fingers have good capillary refill. Right upper extremity: -No deformities. The overlying skin is intact. No obvious signs of acute trauma. -No tenderness to palpation throughout. -No significant pain with passive motion of the shoulder, elbow, wrist, and fingers within the limits of the bed. -Able to make an "OK" sign, cross the index and long fingers, and extend the thumb. -Sensation grossly intact to light touch throughout the median, radial, and ulnar distributions. -Radial pulse is present; Fingers have good capillary refill. Left lower extremity: -No deformities. Significant lymphedema and cellulitis. No obvious signs of acute trauma. -Deep draining wound posterior leg with purulent drainage. -Motion limited -Unable to assess knee effusion due to body habitus -No pain with axial loading of the thigh. -Able to dorsiflex and plantarflex the ankle and toes. -Sensation is grossly intact to light touch throughout the sural, saphenous, superficial peroneal, and deep peroneal distributions. Right lower extremity: -No deformities. Significant lymphedema. No obvious signs of acute trauma. -Motion limited -No pain with axial loading of the thigh. -Able to dorsiflex and plantarflex the ankle and toes. -Sensation is grossly intact to light touch throughout the sural, saphenous, superficial peroneal, and deep peroneal distributions. Results - Labs Result Diagrams: 07/06/17 04:04 07/06/17 04:04 Labs: Abnormal lab results WBC 12.7 K/mcL (4.3-11.1) H 07/06/17 04:04 RBC 2.80 M/mcL (3.82-4.97) L 07/06/17 04:04 Hgb 8.0 g/dL (11.5-15.4) L D 07/06/17 04:04 Hct 26.4 % (35.3-44.9) L 07/06/17 04:04 MCHC 30.3 g/dL (31.6-35.5) L 07/06/17 04:04 RDW 14.6 % (11.5-14.5) H 07/06/17 04:04 Neutrophils # 12.6 K/mcL (1.6-8.9) H 07/06/17 00:57 PT 13.6 Seconds (9.4-12.1) H 07/06/17 00:57 APTT 126.0 Seconds (26.0-36.0) H* 07/06/17 14:09 D-Dimer 1571 ng/mLFEU (0-500) H 07/06/17 00:57 Sodium 135 mEq/L (136-145) L 07/06/17 04:04 BUN 44 mg/dL (7-20) H 07/06/17 04:04 Creatinine 1.61 mg/dL (0.57-1.11) H 07/06/17 04:04 Est GFR ( Amer) 39 (> 60) L 07/06/17 04:04 Est GFR (Non-Af Amer) 32 (> 60) L 07/06/17 04:04 BUN/Creatinine Ratio 27 (6-26) H 07/06/17 04:04 Glucose 114 mg/dL (70-99) H 07/06/17 04:04 Calcium 8.2 mg/dL (8.6-10.8) L 07/06/17 04:04 Troponin I 0.23 ng/mL (0-0.03) H* 07/06/17 13:57 Albumin 2.9 g/dL (3.5-5.0) L 07/05/17 20:31 Globulin 4.4 g/dL (2.4-3.5) H 07/05/17 20:31 Albumin/Globulin Ratio 0.7 (1.1-2.2) L 07/05/17 20:31 Urine Clarity Cloudy (Clear) A 07/05/17 21:08 Urine Bilirubin Small (Negative) H 07/05/17 21:08 Ur Squamous Epith Cells Many per lpf (None-Few) H 07/05/17 21:08 Hyaline Casts Many per lpf (None-Few) H 07/05/17 21:08 Salicylates < 5.0 mg/dL (15-30) L 07/05/17 20:31 Urine Opiates Screen Positive ng/mL (Iflvvl=402) H 07/05/17 21:08 Acetaminophen < 1.0 mcg/mL (10-30) L 07/05/17 20:31 H & H 07/06/17 Range/Units 04:04 Hgb 8.0 L D (11.5-15.4) g/dL Hct 26.4 L (35.3-44.9) % All other labs normal. - Diagnostic results Knee x-ray: report reviewed, image reviewed (Previous TKA with multiple areas of lucency surrounding the implants) Knee MRI: report reviewed, image reviewed (Multiple soft tissue abscesses, no clear communication with the joint) Knee CT: report reviewed, image reviewed Consult Discharge Plan - Plan Referrals: Javier Barrios MD [Primary Care Provider] -
[2017-07-06] MEDS: Zinc Sulfate 220 MG CAPSULE PO SCH (20:15)
[2017-07-06] MEDS: Ascorbic Acid 500 MG TABLET PO SCH (20:15)
[2017-07-06] MEDS: Gentamicin Oint 15 GM TUBE TP SCH (20:41)
[2017-07-06] MEDS ORDERED: Thiamine (B-1) 100 MG in D5% in Water 50 ML IVPB STA (20:42)
[2017-07-06] MEDS: Thiamine (B-1) 100 MG TABLET PO SCH (21:19)
[2017-07-06] MEDS: Insulin LISPRO 300 UNITS/3 ML VIAL SQ SCH (21:25)
[2017-07-07] MEDS: 0.9 % Sodium Chloride 1,000 ML IVC SCH (08:40)
[2017-07-07] MEDS: Insulin LISPRO 300 UNITS/3 ML VIAL SQ SCH ×3 (09:01→16:18)
[2017-07-07] MEDS: Lactobacillus 1 EACH CAP.SPRINK PO SCH (09:09)
[2017-07-07] MEDS: Thiamine (B-1) 100 MG TABLET PO SCH ×2 (09:09→20:15)
[2017-07-07] MEDS: Clindamycin 900 MG/50 ML 900 MG/50 ML IV.SOLN IVPB SCH (09:09)
[2017-07-07] MEDS: Ascorbic Acid 500 MG TABLET PO SCH ×2 (09:09→20:16)
[2017-07-07] MEDS: Venlafaxine XR (24 HR) 75 MG CAP.ER.24H PO SCH (09:09)
[2017-07-07] MEDS: Aspirin 81 MG TAB.CHEW PO SCH (09:09)
[2017-07-07] MEDS: Multivit/Ca/Min/Fe/FA 1 TAB TABLET PO SCH (09:09)
[2017-07-07] MEDS: Zinc Sulfate 220 MG CAPSULE PO SCH ×2 (09:09→20:15)
[2017-07-07] MEDS: Piperacillin/Tazobactam 3.375 GM in 0.9 % Sodium Chloride Mini Bag 100 ML IVPB SCH ×2 (09:10→17:05)
[2017-07-07 10:01] LABS: Basophils % 0.2 %; Eosinophils # 0.2 K/mcL (0.0-0.6); Eosinophils % 2.5 %; Hematocrit 28.9 % (35.3-44.9); Hemoglobin 8.8 g/dL (11.5-15.4); Immature Granulocytes % 0.6 % (0-4); Lymphocytes # 0.8 K/mcL (0.6-4.6); Lymphocytes % 8.2 %; Mean Corpuscular HGB Conc 30.4 g/dL (31.6-35.5); Mean Corpuscular Hemoglobin 28.9 pg (28.0-33.3); Mean Corpuscular Volume 95.1 fL (83.0-100.0); Monocytes # 0.7 K/mcL (0.0-1.3); Monocytes % 7.3 %; Neutrophils # 7.5 K/mcL (1.6-8.9); Platelet Count 259 K/mcL (140-400); Red Blood Count 3.04 M/mcL (3.82-4.97); Red Cell Distribution Width 14.6 % (11.5-14.5); Segmented Neutrophils % 81.2 %
[2017-07-07 10:02] LABS: Calcium 8.6 mg/dL (8.6-10.8); Magnesium 1.9 mg/dL (1.6-2.6)
--- NOTE | 2017-07-07 10:03 | Cardiology Progress Note ---
Date of Encounter: 07/07/17 Time of Encounter: 08:30 Assessment and Plan (1) Septic shock Current Visit: Yes Status: Acute Per cardiology: -Admitted with septic shock. -On ATB -Management per primary service. (2) Suicide attempt Current Visit: Yes Status: Acute Per cardiology: -ADmitted after suicide attempt by ingesting multiple oxycodone tablets. -Psychiatry consulted. -Management per primary and psychiatry services. (3) Acute kidney injury Current Visit: Yes Status: Acute Per cardiology: -Creatinine 1.71 on admission. -Baseline 0.8-1.2. -Management per primary services. (4) Elevated troponin Current Visit: Yes Status: Acute Per cardiology: -Troponin 0.2, 0.44, 0.4, 0.23. -Troponins elevated in the setting of septic shock, suicide attempt, and MESHA. -Deneis chest pain. -ECG with no acute ischemic changes. -TTE with preserved LVEF, no wall motion abnormalities. -Denies previous cardiac history. -On asa, statin, and heparin drip. Not on beta lesvia due to hypotension. -Recommend starting low dose beta lesvia when BP stable. -Cardiology will sign off and will set up follow up in outpatient setting. -Patient is not a good candidate for invasive cardiac procedures due to sepsis, MESHA, and suicidal ideation. Not a candidate for cardiac rehab due to clinical condiiton. Discussion w patient/family: The assessment and plan as outlined above was discussed with the patient who expressed understanding and agreement. All questions were answered. Thank you for involving us in the care of your patient. Please call with any questions. Discussed and reviewed with . Subjective Principal diagnosis: sepsis, intentional overdose Interval history: Patient states she feels better this morning. Denies chest pain. Objective Vital Signs, Last 4 Hours Temp Pulse Resp BP Pulse Ox 07/07/17 09:19 83 07/07/17 07:22 98.3 F 84 17 85/67 96 General: Conversant, No Apparent Distress, Other (More awake today. ) HEENT: Atraumatic, Normocephaly, Mucus Membranes Moist Neck: No JVD, Normal carotid pulses Cardiac: Reg Rate and Rhythm, Normal S1 and S2, No Murmur Lungs: Normal Breath Sounds, No Wheeze, Rales, Rhonchi Neuro: Alert and responsive, No focal deficits noted Abdomen: Soft, Non-Tender Skin: No rashes noted on visualized skin, Other (Left leg with dressing noted. ) Musculoskeletal: No Chest Wall Tenderness Extremities: No Clubbing, No Cyanosis, Normal Pulses, Other (Bilateral lower extermity lymphemdema noted. ) Results 07/07/17 09:33 07/07/17 09:33 Lab Results Impressions Echocardiogram 07/06/17 01:40 Impressions: Normal sinus rhythm. LVEF 65%. Mild concentric left ventricular hypertrophy. Mild left ventricular diastolic dysfunction. Mildly calcified aortic valve leaflets. Mild aortic stenosis. Trace mitral regurgitation. Left Ventricular Wall Motion: Rest Echo Findings All wall segments showed normal motion. Findings: Study Quality * Technically adequate exam. ECG Findings * Normal sinus rhythm. Left Ventricle * LVEF 65%. * Mild concentric left ventricular hypertrophy. * Mild left ventricular diastolic dysfunction. * There is no LV thrombus. Right Ventricle * Normal right ventricular structure and function. Left Atrium * Normal left atrial size. Right Atrium * Normal right atrial size. Interatrial Septum * No evidence of PFO by color Doppler. Aortic Valve * Trileaflet aortic valve. * Mildly calcified aortic valve leaflets. * Mildly thickened aortic valve leaflets. * No aortic regurgitation. * Mild aortic stenosis. Mitral Valve * Normal mitral valve structure. * Mildly calcified mitral valve leaflets. * Trace mitral regurgitation. * No mitral stenosis. * Mild mitral annular calcification Tricuspid Valve * Normal tricuspid valve structure. * No tricuspid stenosi. Pulmonic Valve * Pulmonic valve is not well visualized. Aorta * Normally sized aortic root. Pericardium * The pericardium appears normal. Pulmonary Perfusion Imaging 07/06/17 03:15 IMPRESSION: Very low probability for pulmonary embolism. D/ / Teo Arredondo MD / Teo Arredondo MD Interpreting Provider: Teo Arredondo MD Knee X-Ray 07/06/17 09:39 IMPRESSION: Radiographic findings highly suspicious for septic arthritis/osteomyelitis. D/ / Crow Cannon MD / Crow Cannon MD Interpreting Provider: Crow Cannon MD Active Medications Acetaminophen (Tylenol) 650 mg PO Q6HR PRN PRN Reason: Mild Pain (1-3) Stop: 01/04/18 23:59 Albuterol/Ipratropium (Duoneb) 3 ml IH [id number] PRN PRN Reason: Shortness Of Breath/Wheezing Stop: 01/05/18 02:09 Ascorbic Acid (Vitamin C) 500 mg PO BID [facility] Stop: 01/05/18 21:01 Last Admin: 07/07/17 09:09 Dose: 500 mg Aspirin (Aspirin) 81 mg PO DAILY [facility] Stop: 01/05/18 09:01 Last Admin: 07/07/17 09:09 Dose: 81 mg Buspirone HCl (Buspar) 7.5 mg PO BID [facility]IO Stop: 01/05/18 21:01 Last Admin: 07/07/17 09:09 Dose: 7.5 mg Collagenase (Santyl) 1 appl TP DAILY [facility]IO PRN Reason: Protocol Stop: 01/05/18 21:01 Last Admin: 07/06/17 20:42 Dose: 1 appl Docusate Sodium (Colace) 300 mg PO HS [facility]IO PRN Reason: Protocol Stop: 01/05/18 21:01 Last Admin: 07/06/17 20:14 Dose: 300 mg Gentamicin Sulfate (Garamycin) 1 appl TP DAILY [facility] Stop: 01/05/18 21:01 Last Admin: 07/06/17 20:41 Dose: 1 appl Heparin Sodium (Porcine) (Heparin) 9,000 unit IVP Q6HR PRN PRN Reason: SEE COMMENTS Stop: 01/05/18 02:03 Heparin Sodium (Porcine) (Heparin) 4,500 unit IVP Q6H PRN PRN Reason: SEE COMMENTS Stop: 01/05/18 02:03 Last Admin: 07/06/17 23:45 Dose: 4,500 unit Linezolid/Dextrose (Zyvox Premix 600mg/300ml) 600 mg in 300 mls @ 150 mls/hr IVPB Q12H [facility] Stop: 01/04/18 22:01 Last Infusion: 07/06/17 23:17 Dose: Infused Clindamycin Phosphate/Dextrose (Cleocin Premix 900 Mg/50 Ml) 900 mg in 50 mls @ 50 mls/hr IVPB Q8HR [facility] Stop: 01/05/18 08:01 Last Admin: 07/07/17 09:09 Dose: 50 mls/hr Piperacillin Sod/Tazobactam (Sod 3.375 gm/ Sodium Chloride) 100 mls @ 25 mls/ hr IVPB Q8HR [facility] Stop: 01/05/18 08:01 Last Admin: 07/07/17 09:10 Dose: 25 mls/hr Heparin Sodium/Dextrose (Heparin 25,000 Unit/500 Ml D5w) 25,000 unit in 500 mls @ 36.512 mls/hr IVC .[id number] ROSIO; 14 UNIT/KG/HR PRN Reason: Protocol Stop: 01/05/18 02:16 Last Titration: 07/07/17 08:58 Dose: 12.92 unit/kg/hr, 33.7 mls/hr Sodium Chloride (0.9 % Sodium Chloride) 1,000 mls @ 125 mls/hr IVC .Q8H [facility] Stop: 01/05/18 06:16 Last Admin: 07/07/17 08:40 Dose: 125 mls/hr Insulin Human Lispro (Humalog) 0 units SQ TIDAC ROSIO PRN Reason: Protocol Stop: 01/05/18 21:01 Last Admin: 07/07/17 09:01 Dose: Not Given Lactobacillus Acidophilus/Rhamnosus (Culturelle) 2 each PO DAILY [facility] Stop: 01/05/18 20:44 Last Admin: 07/07/17 09:09 Dose: 2 each Morphine Sulfate (Morphine Sulfate) 2 mg IVP Q4HR PRN PRN Reason: Severe Pain (7-10) Stop: 01/04/18 23:59 Multivitamins/Calcium (Thera M Plus) 1 tab PO DAILY [facility] Stop: 01/05/18 09:01 Last Admin: 07/07/17 09:09 Dose: 1 tab Mupirocin (Bactroban Oint) 1 appl TP DAILY [facility] Stop: 01/05/18 21:01 Last Admin: 07/06/17 20:41 Dose: 1 appl Naloxone HCl (Narcan) 0.4 mg IVP Q2MIN PRN PRN Reason: Opioid Reversal Stop: 01/04/18 23:59 Last Admin: 07/06/17 16:03 Dose: 0.4 mg Ondansetron HCl (Zofran) 4 mg IVP Q8HR PRN PRN Reason: Nausea And Vomiting Stop: 01/04/18 23:59 Simvastatin (Zocor) 20 mg PO HS [facility] PRN Reason: Protocol Stop: 01/05/18 01:46 Last Admin: 07/06/17 20:15 Dose: 20 mg Thiamine HCl (Vitamin B-1) 200 mg PO BID [facility] Stop: 01/05/18 21:01 Last Admin: 07/07/17 09:09 Dose: 200 mg Venlafaxine HCl (Effexor Xr) 75 mg PO DAILY [facility] Stop: 01/05/18 09:01 Last Admin: 07/07/17 09:09 Dose: 75 mg Zinc Sulfate (Zinc Sulfate) 220 mg PO BID [facility] Stop: 01/05/18 21:01 Last Admin: 07/07/17 09:09 Dose: 220 mg Laboratory Tests 07/07/17 07/07/17 09:33 09:33 Hgb 8.8 L Creatinine 1.52 H - Imaging and Cardiology Chest Xray: report reviewed Echo: report reviewed - EKG Interpretation EKG results cardiology: other (Telemetry reviewed with average HR previous 12 hours noted to be 87, sinus rhythm. PVCs and PACs noted.) Consult Discharge Plan - Plan Referrals: Javier Barrios MD [Primary Care Provider] -
[2017-07-07] MEDS: Heparin 25,000 UNIT/500 ML D5W 25,000 UNIT/500 ML MLS IVC SCH (10:41)
--- NOTE | 2017-07-07 11:35 | General Surgery Progress Note ---
Date of Encounter: 07/07/17 Time of Encounter: 11:33 - Assessment and Plan (1) Septic arthritis Current Visit: Yes Status: Acute 66F with significant lymphedema, L leg cellulitis, L leg wound with drainage with concern for septic arthritis - daily dressing changes - cont abx - appreciate ortho recommendations patient still adamant about no further surgical intervention; - appreciate psychiatry recommendations: need to determine competence - need to establish advance directive with patient and POA Qualifiers: Septic arthritis location: knee Septic arthritis organism: due to unspecified organism Laterality: left Qualified Code(s): M00.9 - Pyogenic arthritis, unspecified (2) Pressure ulcer of left leg, unstageable Current Visit: No Status: Acute continue dressing changes no acute surgery per patient (3) Left leg cellulitis Current Visit: Yes Status: Acute cont with abx regimen Subjective Patient reports: no new complaints, feels better, afebrile Objective Vital Signs - Last 8 Hours Temp Pulse Resp BP Pulse Ox 07/07/17 09:19 83 07/07/17 07:22 98.3 F 84 17 85/67 96 07/07/17 04:00 98.3 F 80 18 90/47 99 Intake and Output 07/06/17 07/07/17 07/07/17 23:59 07:59 15:59 Intake Total 3214.9 / 3214.9 180 / 180 1578.1 / 1578.1 Output Total 350 / 350 500 / 500 Balance 2864.9 / 2864.9 180 / 180 1078.1 / 1078.1 Intake: IV Fluids 2754.9 / 2754.9 150 / 150 1458.1 / 1458.1 0.9 % Sodium Chloride 1,000 ML 1798 / 1798 1000 / 1000 @ 125 mls/hr IVC .Q8H [facility] Rx#: [id number] Heparin 25,000 UNIT/500 ML D5W 555.9 / 555.9 408.1 / 408.1 25,000 unit In 500 ml @ 14 UNIT /KG/HR 36.512 mls/hr IVC . [id number] ROSIO Rx#:[id number] Cleocin Premix 900 MG/50 ML 900 50 / 50 50 / 50 50 / 50 mg In 50 ml @ 50 mls/hr IVPB Q8HR [facility] Rx#:[id number] Zyvox Premix 600mg/300mL 600 mg 300 / 300 In 300 ml @ 150 mls/hr IVPB Q12H [facility] Rx#:[id number] Zosyn 3.375 GM In 0.9 % Sodium 100 / 100 Chloride (Mini-Bag +) 100 ML @ 25 mls/hr IVPB Q8HR [facility] Rx#: [id number] Vitamin B-1 100 MG In Dextrose 51 / 51 5% 50 ML @ 50 mls/hr IVPB NOW STA Rx#:[id number] Oral 460 / 460 30 / 30 120 / 120 Output: Catheter 350 / 350 500 / 500 Other: Meal Dinner Breakfast Percent of Meal Consumed 70% 90% Weight 132.3 kg Blood Glucose* 77 100 Patient Weight 07/07/17 23:59 Weight 132.3 kg - General physical appearance well developed, well nourished, no distress - Respiratory normal expansion, normal respiratory effort - Cardiovascular Cardiovascular exam: Present: RRR - Abdomen Abdomen: Present: soft, non tender - Integumentary other (LLE ulcer with purulent drainage, copious in amount) - Neurologic CN 2-12 grossly intact - Psychiatric oriented to time, oriented to person, oriented to place - Labs 07/07/17 09:33 07/07/17 09:33 Diabetes panel 07/07/17 Range/Units 09:33 Sodium 135 L (136-145) mEq/L Potassium 4.0 (3.5-4.5) mEq/L Chloride 105 (98-109) mEq/L Carbon Dioxide 23 (19-29) mEq/L BUN 37 H (7-20) mg/dL Creatinine 1.52 H (0.57-1.11) mg/dL Glucose 108 H (70-99) mg/dL Calcium 8.6 (8.6-10.8) mg/dL Calcium panel 07/07/17 Range/Units 09:33 Calcium 8.6 (8.6-10.8) mg/dL Pituitary panel 07/07/17 Range/Units 09:33 Sodium 135 L (136-145) mEq/L Potassium 4.0 (3.5-4.5) mEq/L Chloride 105 (98-109) mEq/L Carbon Dioxide 23 (19-29) mEq/L BUN 37 H (7-20) mg/dL Creatinine 1.52 H (0.57-1.11) mg/dL Glucose 108 H (70-99) mg/dL Calcium 8.6 (8.6-10.8) mg/dL Adrenal panel 07/07/17 Range/Units 09:33 Sodium 135 L (136-145) mEq/L Potassium 4.0 (3.5-4.5) mEq/L Chloride 105 (98-109) mEq/L Carbon Dioxide 23 (19-29) mEq/L BUN 37 H (7-20) mg/dL Creatinine 1.52 H (0.57-1.11) mg/dL Glucose 108 H (70-99) mg/dL Calcium 8.6 (8.6-10.8) mg/dL Consult Discharge Plan - Plan Referrals: Javier Barrios MD [Primary Care Provider] -
--- NOTE | 2017-07-07 12:05 | Psychiatry Progress Note ---
Date of Encounter: 07/07/17 Time of Encounter: 11:53 Subjective Interval history: Client did not remember meeting this display card writer yesterday for which she was very apologetic. Pleasant today. Tearful but appropriate. Admits the overdose was a suicide attempt. Upset it did not work. Still very depressed. Spent a long time talking about her physical health issues, what she has been through, and what she is anticipating going through. She has no evidence of a thought disorder or cognitive impairment. She is knowledgeable about everything that is happening. She is impaired by her mood disorder. Already prescribed an antidepressant. Feels Pristique works best for her. Really needs counseling. She wants counseling but can't make it to appointments due to her physical conditions. However, she responded well just having a staff person at her bedside to talk to. She is resigned to going through with the surgery on her left knee. She feels prepared to do it. However, she is worried about what will happen when it is over as she ultimately does not want to be in a fdc. Brother is POA and she is worried he will stick her somewhere where she will be miserable. Discussed taking all of this one day at a time and she was in agreement. She would like to have someone to talk to on a daily basis about what she is going through. It would probably help her if this could be arranged. At this point she is perfectly capable of understanding what is happening to her. Her depression is impairing her and probably interferes with her capacity to make certain medical decisions but this has to be taken on a case by case basis. She has a POA who can make most of her medical decisions for her at this time and client has agreed to do the surgery that is being recommended. She would benefit from regular counseling, however, if this can be arranged. Review of Systems Constitutional: Reports: weakness Eyes: Denies: eye pain, vision change Ears, Nose, Throat: Denies: ear pain, throat pain, dental pain, hearing loss, congestion Cardiovascular: Denies: chest pain, palpitations, dyspnea on exertion Respiratory: Reports: sputum production Gastrointestinal: Denies: abdominal pain, nausea, vomiting, diarrhea, constipation Musculoskeletal: Reports: joint swelling, joint pain Neurological: Reports: weakness Objective: Exam Patient orientation: Yes Person, Yes Time, Yes Place Level of alertness: Alert Patient appearance: Disheveled Behavior: calm, cooperative Psychomotor activity: Normal Eye contact: Maintains Eye Contact Mood description: Depressed Affect description: congruent with mood, tearful Speech pattern: Normal rate, Normal rhythm, Normal tone Speech volume: Normal Thought process: Linear Thought content: Yes Suicidal ideation, No Homicidal ideation, No Overt delusions Perceptual disturbances: No Auditory hallucinations, No Visual hallucinations Judgment: Limited Insight: Partial Results - Vital Signs Vital Signs: Temp Pulse Resp BP Pulse Ox 98.6 F 102 18 129/69 93 07/07/17 11:27 07/07/17 11:27 07/07/17 11:27 07/07/17 11:27 07/07/17 11:27 - Labs Labs: Laboratory Results - last 24 hr 07/06/17 07/06/17 07/06/17 05:58 11:54 13:57 WBC RBC Hgb Hct MCV MCH MCHC RDW Plt Count MPV Immature Gran % Seg Neutrophils % Lymphocytes % Monocytes % Eosinophils % Basophils % Neutrophils # Lymphocytes # Monocytes # Eosinophils # Basophils # APTT Heparin Anti-Xa, Unfract Sodium Potassium Chloride Carbon Dioxide BUN Creatinine Est GFR ( Amer) Est GFR (Non-Af Amer) BUN/Creatinine Ratio Glucose POC Glucose 113 H 110 H Calculated Osmolality Calcium Magnesium Troponin I 0.23 H* B-Natriuretic Peptide Prealbumin 07/06/17 07/06/17 07/06/17 14:09 17:37 20:17 WBC RBC Hgb Hct MCV MCH MCHC RDW Plt Count MPV Immature Gran % Seg Neutrophils % Lymphocytes % Monocytes % Eosinophils % Basophils % Neutrophils # Lymphocytes # Monocytes # Eosinophils # Basophils # APTT 126.0 H* Heparin Anti-Xa, Unfract 0.60 Sodium Potassium Chloride Carbon Dioxide BUN Creatinine Est GFR ( Amer) Est GFR (Non-Af Amer) BUN/Creatinine Ratio Glucose POC Glucose 70 77 Calculated Osmolality Calcium Magnesium Troponin I B-Natriuretic Peptide Prealbumin 07/06/17 07/07/17 07/07/17 21:55 06:46 09:33 WBC 9.3 RBC 3.04 L Hgb 8.8 L Hct 28.9 L MCV 95.1 MCH 28.9 MCHC 30.4 L RDW 14.6 H Plt Count 259 MPV 10.0 Immature Gran % 0.6 Seg Neutrophils % 81.2 Lymphocytes % 8.2 Monocytes % 7.3 Eosinophils % 2.5 Basophils % 0.2 Neutrophils # 7.5 Lymphocytes # 0.8 Monocytes # 0.7 Eosinophils # 0.2 Basophils # 0.0 APTT 50.4 H D 80.3 H D Heparin Anti-Xa, Unfract Sodium Potassium Chloride Carbon Dioxide BUN Creatinine Est GFR ( Amer) Est GFR (Non-Af Amer) BUN/Creatinine Ratio Glucose POC Glucose Calculated Osmolality Calcium Magnesium Troponin I B-Natriuretic Peptide Prealbumin 07/07/17 07/07/17 07/07/17 09:33 09:33 09:33 WBC RBC Hgb Hct MCV MCH MCHC RDW Plt Count MPV Immature Gran % Seg Neutrophils % Lymphocytes % Monocytes % Eosinophils % Basophils % Neutrophils # Lymphocytes # Monocytes # Eosinophils # Basophils # APTT Heparin Anti-Xa, Unfract Sodium 135 L Potassium 4.0 Chloride 105 Carbon Dioxide 23 BUN 37 H Creatinine 1.52 H Est GFR ( Amer) 41 L Est GFR (Non-Af Amer) 34 L BUN/Creatinine Ratio 24 Glucose 108 H POC Glucose Calculated Osmolality 289 Calcium 8.6 Magnesium 1.9 Troponin I B-Natriuretic Peptide 214 H Prealbumin 10.0 L - Impressions ITS Impressions Knee X-Ray 07/06/17 09:39 IMPRESSION: Radiographic findings highly suspicious for septic arthritis/osteomyelitis. D/ / Crow Cannon MD / Crow Cannon MD Interpreting Provider: Crow Cannon MD Assessment and Plan (1) Major depress dis, severe Current visit: Yes Status: Acute Plan: Continue hospitalization, Close observation Risks, benefits, side effects, alternatives discussed w/pt: Yes Patient agreeable to treatment: Yes Consult Discharge Plan - Plan Referrals: Javier Barrios MD [Primary Care Provider] -
[2017-07-07 14:31] LABS: INR 1.2; Prothrombin Time 13.4 Seconds (9.4-12.1)
--- NOTE | 2017-07-07 14:36 | Internal Med Progress Note ---
Date of Encounter: 07/07/17 Time of Encounter: 14:00 - Assessment and plan (1) Suicidal ideation Current Visit: Yes Status: Acute (2) Left leg cellulitis Current Visit: Yes Status: Acute (3) Elevated d-dimer Current Visit: Yes Status: Acute (4) Knee joint cyst, left Current Visit: Yes Status: Acute (5) Septic arthritis Current Visit: Yes Status: Acute Qualifiers: Septic arthritis location: knee Septic arthritis organism: due to unspecified organism Laterality: left Qualified Code(s): M00.9 - Pyogenic arthritis, unspecified - Time Spent With Patient I had long discussion with patient counseling her about risk and benefit of needle aspiration, patient wanted her orthopedic to do it. I discussed with her orthopedic Dr. Chambers, I had long discussion with him I reviewed with him Knee CAT scan. Based on his recommendation, he stated this is most likely chronic, he recommended for patient to have knee aspiration here, he discussed with patient over the phone. Finally patient was agreeable. I discussed with orthopedic injection specialist Dr. Maria. He stated with her chronic knee infection, high risk of complication, he recommended conservative management for now IV antibiotic and patient to follow up with her orthopedic for further procedure. We will consult infectious disease, may need intermodal truck driver antibiotic. Patient needed placement. Appreciate psychiatry input. May consider long acute rehabilitation, [facility] . Discussed with orthopedic regarding antibiotic, old WOUND CULTURE REVIEWED, continue Zosyn and vancomycin discontinue clindamycin, gentle hydration, dietary supplement, wound care consult on board, DVT prophylaxis SCD, close monitoring of H&H Greater than 35 minutes - Subjective Interval history: Patient denies any suicidal ideation. Patient denies any chest pain or shortness of breath. Patient has good spirits today. Patient is agreeable to have procedure done. Patient is very cooperative with conversation - Constitutional Vitals: Temp Pulse Resp BP Pulse Ox 98.6 F 102 18 129/69 93 07/07/17 11:27 07/07/17 11:27 07/07/17 11:27 07/07/17 11:27 07/07/17 11:27 General appearance: Present: A&O X 3, morbidly obese, no acute distress, answers questions appropriately - Head Head exam: Present: atraumatic, normocephalic - Respiratory Respiratory exam: Present: decreased breath sounds, rales. Absent: accessory muscle use, rhonchi, wheezes - Cardiovascular Cardiovascular exam: Present: RRR, +S1, +S2. Absent: diastolic murmur, gallop, rubs, systolic murmur - Extremities Exam Extremities exam: Present: calf tenderness, pedal edema, tenderness (Bilateral knee tenderness), warm. Absent: cyanotic - Psychiatric Psychiatric exam: Present: depressed, flat affect. Absent: homicidal ideation, suicidal ideation Internal Medicine: Result - Labs CBC & Chem 7: 07/07/17 09:33 07/07/17 09:33 Labs: Short CBC 07/07/17 Range/Units 09:33 WBC 9.3 (4.3-11.1) K/mcL Hgb 8.8 L (11.5-15.4) g/dL Hct 28.9 L (35.3-44.9) % Plt Count 259 (140-400) K/mcL Neutrophils # 7.5 (1.6-8.9) K/mcL BMP 07/07/17 09:33 Sodium 135 L Potassium 4.0 Chloride 105 Carbon Dioxide 23 BUN 37 H Creatinine 1.52 H Glucose 108 H Calcium 8.6 - ABG Interpretation ABG results: PT/INR, D-dimer PT 13.4 Seconds (9.4-12.1) H 07/07/17 14:15 D-Dimer 1571 ng/mLFEU (0-500) H 07/06/17 00:57 Consult Discharge Plan - Plan Referrals: Javier Barrios MD [Primary Care Provider] -
[2017-07-07] MEDS ORDERED: Cyanocobalamin (B-12) 1,000 MCG/ML VIAL IM ONE (15:17)
[2017-07-07] MEDS: Cyanocobalamin (B-12) 1,000 MCG TABLET PO SCH (15:45)
[2017-07-07] MEDS: Gentamicin Oint 15 GM TUBE TP SCH (20:17)
[2017-07-07] MEDS: *HR* Heparin 5,000 UNIT/ML VIAL SQ SCH (23:32)
[2017-07-08] MEDS: Piperacillin/Tazobactam 3.375 GM in 0.9 % Sodium Chloride Mini Bag 100 ML IVPB SCH ×4 (00:47→23:40)
[2017-07-08 03:21] LABS: Basophils % 0.3 %; Eosinophils # 0.2 K/mcL (0.0-0.6); Eosinophils % 2.5 %; Hematocrit 27.1 % (35.3-44.9); Hemoglobin 8.3 g/dL (11.5-15.4); Immature Granulocytes % 0.4 % (0-4); Lymphocytes # 0.8 K/mcL (0.6-4.6); Mean Corpuscular HGB Conc 30.6 g/dL (31.6-35.5); Mean Corpuscular Hemoglobin 28.6 pg (28.0-33.3); Mean Corpuscular Volume 93.4 fL (83.0-100.0); Mean Platelet Volume 9.8 fL (9.4-12.4); Monocytes # 0.8 K/mcL (0.0-1.3); Monocytes % 10.2 %; Neutrophils # 5.8 K/mcL (1.6-8.9); Platelet Count 260 K/mcL (140-400); Red Cell Distribution Width 14.4 % (11.5-14.5); Segmented Neutrophils % 75.6 %
[2017-07-08 03:41] LABS: Calcium 8.7 mg/dL (8.6-10.8); Magnesium 2.3 mg/dL (1.6-2.6)
[2017-07-08 04:23] LABS: Potassium 4.1 mEq/L (3.5-4.5)
[2017-07-08] MEDS: 0.9 % Sodium Chloride 1,000 ML IVC SCH ×5 (06:16→23:41)
[2017-07-08] MEDS: *HR* Heparin 5,000 UNIT/ML VIAL SQ SCH ×3 (06:17→21:34)
[2017-07-08] MEDS: Insulin LISPRO 300 UNITS/3 ML VIAL SQ SCH ×3 (08:29→17:36)
--- NOTE | 2017-07-08 08:53 | Internal Med Progress Note ---
Date of Encounter: 07/08/17 Time of Encounter: 08:50 - Assessment and plan (1) Suicidal ideation Current Visit: Yes Status: Acute (2) Left leg cellulitis Current Visit: Yes Status: Acute (3) Elevated d-dimer Current Visit: Yes Status: Acute (4) Knee joint cyst, left Current Visit: Yes Status: Acute (5) Septic arthritis Current Visit: Yes Status: Acute Qualifiers: Septic arthritis location: knee Septic arthritis organism: due to unspecified organism Laterality: left Qualified Code(s): M00.9 - Pyogenic arthritis, unspecified - Time Spent With Patient We will discontinue IV fluid, continue current IV antibiotic, awaiting final orthopedic input, if decision to discharge patient on IV antibiotics she will need rehabilitation . I called infection disease and left message awaiting callback, decision on duration of antibiotic need to be made. If psychiatrically cleared patient for discharge may be transferred to a different hospital where her orthopedic team can perform her surgery. Dr. Maria recommended for the patient to be seen by her orthopedic surgery,May need reevaluation by psychiatry team for possible referral to /different hospital , [facility]. Patient needs IV antibiotic, okay to [facility] if they can handle IV antibiotic, if possibly decided not to proceed with surgery for now. Close monitoring of H&H, add laxative for constipation, remove Patel catheter ambulate physical therapy and occupational therapy consult 25 - 35 minutes - Subjective Interval history: Patient denies any chest pain or shortness of breath. Patient complaining of swelling bilateral upper extremities secondary to IV fluid. Patient is agreeable with any procedure to be done here. Continue to have better mood today. - Constitutional Vitals: Temp Pulse Resp BP Pulse Ox 98.5 F 90 16 123/65 98 07/08/17 08:00 07/08/17 08:00 07/08/17 08:00 07/08/17 08:00 07/08/17 08:00 General appearance: Present: A&O X 3, morbidly obese, no acute distress, answers questions appropriately - Head Head exam: Present: atraumatic, normocephalic - Eye Eye exam: Present: conjuntiva pink, sclera anicteric - Neck Neck exam general surgery: Absent: tenderness, nuchal rigidity - Respiratory Respiratory exam: Present: CTAB. Absent: accessory muscle use, rales, rhonchi, wheezes - Cardiovascular Cardiovascular exam: Present: RRR, +S1, +S2. Absent: diastolic murmur, gallop, rubs, systolic murmur - GI/Abdominal GI/Abdominal exam: Present: distended, normal bowel sounds, soft, no peritoneal signs. Absent: hepatomegaly, tenderness - Extremities Exam Extremities exam: Present: calf tenderness, pedal edema, tenderness, warm. Absent: cyanotic Internal Medicine: Result - Labs CBC & Chem 7: 07/08/17 02:37 07/08/17 02:37 Labs: Short CBC 07/07/17 07/08/17 Range/Units 09:33 02:37 WBC 9.3 7.6 (4.3-11.1) K/mcL Hgb 8.8 L 8.3 L (11.5-15.4) g/dL Hct 28.9 L 27.1 L (35.3-44.9) % Plt Count 259 260 (140-400) K/mcL Neutrophils # 7.5 5.8 (1.6-8.9) K/mcL BMP 07/07/17 07/08/17 09:33 02:37 Sodium 135 L 135 L Potassium 4.0 4.1 Chloride 105 106 Carbon Dioxide 23 23 BUN 37 H 28 H Creatinine 1.52 H 1.11 Glucose 108 H 113 H Calcium 8.6 8.7 - ABG Interpretation ABG results: PT/INR, D-dimer PT 13.4 Seconds (9.4-12.1) H 07/07/17 14:15 D-Dimer 1571 ng/mLFEU (0-500) H 07/06/17 00:57 Consult Discharge Plan - Plan Referrals: Javier Barrios MD [Primary Care Provider] -
[2017-07-08] MEDS: Ascorbic Acid 500 MG TABLET PO SCH ×2 (08:56→21:36)
[2017-07-08] MEDS: Cyanocobalamin (B-12) 1,000 MCG TABLET PO SCH (08:56)
[2017-07-08] MEDS: Lactobacillus 1 EACH CAP.SPRINK PO SCH (08:57)
[2017-07-08] MEDS: Aspirin 81 MG TAB.CHEW PO SCH (08:57)
[2017-07-08] MEDS: Zinc Sulfate 220 MG CAPSULE PO SCH ×2 (08:57→21:35)
[2017-07-08] MEDS: Venlafaxine XR (24 HR) 75 MG CAP.ER.24H PO SCH (08:57)
[2017-07-08] MEDS: Thiamine (B-1) 100 MG TABLET PO SCH ×2 (08:57→21:34)
[2017-07-08] MEDS: Multivit/Ca/Min/Fe/FA 1 TAB TABLET PO SCH (08:57)
--- NOTE | 2017-07-08 10:52 | Electrocardiograph Report ---
[address] [place], [place] [address] Test Date: 2017-07-05 Pat Name: Nadiya Roger Department: 104 Room: 01 Gender: F Security Representative: : 1950 Requested By: Devin Martinez Order Number: [id number] Reading MD: Manas Guzmán MD Measurements Intervals [place] Rate: 105 P: 31 NV: 144 QRS: 63 QRSD: 105 T: 39 QT: 329 QTc: 390 Interpretive Statements SINUS TACHYCARDIA BASELINE ARTIFACT Electronically Signed On 07-08-2017 10:50:32 EST by Manas Guzmán MD
--- NOTE | 2017-07-08 10:53 | Electrocardiograph Report ---
[address] [address] Test Date: 2017-07-06 Pat Name: Nadiya Roger Department: 110 Room: 01 Gender: F Ocean Biologist: [id number] : 1950 Requested By: Fredrick Eubanks Order Number: [id number] Reading MD: Manas Guzmán MD Measurements Intervals [place] Rate: 102 P: 39 [place]: 152 QRS: 71 QRSD: 104 T: 40 QT: 337 QTc: 396 Interpretive Statements SINUS TACHYCARDIA BASELINE ARTIFACT Electronically Signed On 07-08-2017 10:51:25 EST by Manas Guzmán MD
[2017-07-08] MEDS ORDERED: Saline Nasal Spray 44 ML BOTTLE NS PRN (11:42)
--- NOTE | 2017-07-08 13:04 | General Surgery Progress Note ---
Date of Encounter: 07/08/17 Time of Encounter: 13:02 - Assessment and Plan (1) Septic arthritis Current Visit: Yes Status: Acute 66F with significant lymphedema, L leg cellulitis, L leg wound with drainage with concern for septic arthritis patient has agreed to see her orthopedist for further intervention i agree with her thought process and encourage such action okay to transfer Qualifiers: Septic arthritis location: knee Septic arthritis organism: due to unspecified organism Laterality: left Qualified Code(s): M00.9 - Pyogenic arthritis, unspecified (2) Pressure ulcer of left leg, unstageable Current Visit: No Status: Acute see above (3) Left leg cellulitis Current Visit: Yes Status: Acute cont with abx regimen Subjective Patient reports: no new complaints, other (today agrees for further intervention with Left knee) Objective Vital Signs - Last 8 Hours Temp Pulse Resp BP Pulse Ox 07/08/17 11:22 98.2 F 97 17 145/86 100 07/08/17 08:00 98.5 F 90 16 123/65 98 07/08/17 07:00 89 18 126/63 98 Intake and Output 07/07/17 07/08/17 07/08/17 23:59 07:59 15:59 Intake Total 1314 / 1314 400 / 400 360 / 360 Output Total 1000 / 1000 1175 / 1175 1350 / 1350 Balance 314 / 314 -775 / -775 -990 / -990 Intake: IV Fluids 1314 / 1314 400 / 400 0.9 % Sodium Chloride 1,000 ML 1000 / 1000 @ 125 mls/hr IVC .Q8H ROSIO Rx#: [id number] Heparin 25,000 UNIT/500 ML D5W 214 / 214 25,000 unit In 500 ml @ 14 UNIT /KG/HR 36.512 mls/hr IVC . [id number] ROSIO Rx#:[id number] Zyvox Premix 600mg/300mL 600 mg 300 / 300 In 300 ml @ 150 mls/hr IVPB Q12H ROSIO Rx#:[id number] Zosyn 3.375 GM In 0.9 % Sodium 100 / 100 100 / 100 Chloride (Mini-Bag +) 100 ML @ 25 mls/hr IVPB Q8HR ROSIO Rx#: [id number] Oral 360 / 360 Output: Catheter 1000 / 1000 1175 / 1175 1350 / 1350 Other: Meal Breakfast Percent of Meal Consumed 0% Weight 132.7 kg Blood Glucose* 130 90 110 Patient Weight 07/08/17 23:59 Weight 132.7 kg - General physical appearance no distress - Respiratory normal expansion, normal respiratory effort - Cardiovascular Cardiovascular exam: Present: RRR - Abdomen Abdomen: Present: soft, non tender - Integumentary other (purulent drainage from LLE wound) - Neurologic CN 2-12 grossly intact - Labs 07/08/17 02:37 07/08/17 02:37 Diabetes panel 07/08/17 Range/Units 02:37 Sodium 135 L (136-145) mEq/L Potassium 4.1 (3.5-4.5) mEq/L Chloride 106 (98-109) mEq/L Carbon Dioxide 23 (19-29) mEq/L BUN 28 H (7-20) mg/dL Creatinine 1.11 (0.57-1.11) mg/dL Glucose 113 H (70-99) mg/dL Calcium 8.7 (8.6-10.8) mg/dL Calcium panel 07/08/17 Range/Units 02:37 Calcium 8.7 (8.6-10.8) mg/dL Pituitary panel 07/08/17 Range/Units 02:37 Sodium 135 L (136-145) mEq/L Potassium 4.1 (3.5-4.5) mEq/L Chloride 106 (98-109) mEq/L Carbon Dioxide 23 (19-29) mEq/L BUN 28 H (7-20) mg/dL Creatinine 1.11 (0.57-1.11) mg/dL Glucose 113 H (70-99) mg/dL Calcium 8.7 (8.6-10.8) mg/dL Adrenal panel 07/08/17 Range/Units 02:37 Sodium 135 L (136-145) mEq/L Potassium 4.1 (3.5-4.5) mEq/L Chloride 106 (98-109) mEq/L Carbon Dioxide 23 (19-29) mEq/L BUN 28 H (7-20) mg/dL Creatinine 1.11 (0.57-1.11) mg/dL Glucose 113 H (70-99) mg/dL Calcium 8.7 (8.6-10.8) mg/dL Consult Discharge Plan - Plan Referrals: Javier Barrios MD [Primary Care Provider] -
[2017-07-08] MEDS: Fluticasone Propionate Nasal 50 MCG/SPRAY BOTTLE NS SCH (13:49)
[2017-07-08] MEDS: Loratadine 10 MG TABLET PO SCH (14:46)
[2017-07-08] MEDS: Gentamicin Oint 15 GM TUBE TP SCH (21:45)
[2017-07-09] MEDS: *HR* Heparin 5,000 UNIT/ML VIAL SQ SCH ×3 (06:00→20:28)
[2017-07-09] MEDS: Acetaminophen 325 MG TABLET PO PRN ×3 (07:45→22:16)
[2017-07-09] MEDS: Insulin LISPRO 300 UNITS/3 ML VIAL SQ SCH ×3 (08:29→16:31)
[2017-07-09] MEDS: Venlafaxine XR (24 HR) 75 MG CAP.ER.24H PO SCH (09:06)
[2017-07-09] MEDS: Zinc Sulfate 220 MG CAPSULE PO SCH ×2 (09:06→20:27)
[2017-07-09] MEDS: Thiamine (B-1) 100 MG TABLET PO SCH ×2 (09:06→20:27)
[2017-07-09] MEDS: Cyanocobalamin (B-12) 1,000 MCG TABLET PO SCH (09:06)
[2017-07-09] MEDS: Loratadine 10 MG TABLET PO SCH (09:06)
[2017-07-09] MEDS: Piperacillin/Tazobactam 3.375 GM in 0.9 % Sodium Chloride Mini Bag 100 ML IVPB SCH (09:06)
[2017-07-09] MEDS: Aspirin 81 MG TAB.CHEW PO SCH (09:06)
[2017-07-09] MEDS: Lactobacillus 1 EACH CAP.SPRINK PO SCH (09:06)
[2017-07-09] MEDS: Ascorbic Acid 500 MG TABLET PO SCH ×2 (09:06→20:27)
[2017-07-09] MEDS: Multivit/Ca/Min/Fe/FA 1 TAB TABLET PO SCH (09:06)
[2017-07-09] MEDS: Fluticasone Propionate Nasal 50 MCG/SPRAY BOTTLE NS SCH (09:07)
--- NOTE | 2017-07-09 10:52 | Infectious Disease Consult ---
Date of Encounter: 07/09/17 Time of Encounter: 10:49 Assessment and Plan (1) Severe sepsis Status: Acute Assessment and plan: The patient had two SIRS criteria plus hypotension responsive to IVF and MESHA. Likely secondary to left knee PJI/OM/abscess/wound infection. Improved. WBC has normalized. The patient continues to have intermittent tachycardia. Blood cultures drawn 07/05/17 are NGTD x 2 sets. (2) Infection of prosthetic left knee joint Status: Acute Assessment and plan: Location: Left knee. Causative organism unclear. Patient refused arthrocentesis. Wound culture positive for Pasturella canis, but consider polymicrobial infection given the extent of the infection and lack of culture of the actual joint fluid. Secondary to left leg wound infection. Status post bilateral TKR in 1997. 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 CT of the LLE showed left total knee hardware with effusion and findings consistent with septic arthritis and possible osteomyelitis as well as possible abscesses. Xray of the left knee showed findings consistent with septic arthritis and OM as well. Orthopedics consulted. Attempted arthrocentesis, but the patient refused. Recommend arthrocentesis at this time as the patient is now agreeable. Send fluid for cell count with differential, protein, LDH, glucose, and culture ( aerobic and anaerobic). Check ESR and CRP. The patient will likely require surgical intervention to ensure adequate source control of the infection. Recommend transfer to a facility where the patient can be evaluated by her orthopedic surgeon. The patient is agreeable to this. In the mean time, continue Zosyn 3.375 grams IV Q8H. Discontinue Zyvox as use of this medication with Effexor is contraindicated due to the high risk for serotonin syndrome. The patient reports an allergy to Vanc. Start Daptomycin 6mg/kg IV daily. Check baseline CK level. Stop simvastatin while on the Daptomycin. Duration of treatment depends on the clinical picture, but likely 6 weeks from the date of surgery. Monitor renal function and for drug toxicity and dose-adjust antibiotics. Discussed with Dr. Elise of the primary team. Qualifiers: Encounter type: initial encounter Qualified Code(s): T84.54XA - Infection and inflammatory reaction due to internal left knee prosthesis, initial encounter (3) Osteomyelitis Status: Acute Assessment and plan: Location: Tibial plateau and patella. Causative organism unclear. Antibiotics and recommendations as above. Qualifiers: Osteomyelitis type: acute hematogenous Osteomyelitis location: other site Qualified Code(s): M86.08 - Acute hematogenous osteomyelitis, other sites (4) Left leg cellulitis Status: Acute Assessment and plan: Noted on admission. No evidence of cellulitis at this time. Secondary to left leg wound infection. Causative organism unclear. Improved. Continue antibiotics as above. (5) Abscess Status: Acute Assessment and plan: Location: Lateral subcutaneous fat at the level of the distal femur of the LLE as well as medial subcutaneous fat at the level of the distal femur and proximal tibia. Wound culture is positive for Pasturella canis, but concern for polymicrobial infection given the extent of the infection. General surgery consulted and following. Continue antibiotics as above. Wound care per the general surgery team. (6) Acute kidney injury Status: Acute Assessment and plan: Likely secondary to sepsis. Resolved. (7) Suicidal ideation Status: Acute Assessment and plan: Secondary to major depressive disorder. Psych consulted. (8) Pressure ulcer of left leg, unstageable Status: Acute Assessment and plan: Location: Left lateral leg. Etiology unclear. Continue wound care per the surgery team. (9) Chronic pain syndrome Status: Chronic (10) Lymphedema of both lower extremities Status: Acute Assessment and plan: Consider referral to lymphedema clinic as an outpatient. (11) Major depress dis, severe Status: Acute Assessment and plan: Psychiatry consulted and following. (12) HTN (hypertension) Status: Chronic Qualifiers: Hypertension type: essential hypertension Qualified Code(s): I10 - Essential (primary) hypertension Infectious Disease HPI - Data of Consult Patient: new to practice Consult date: 07/09/17 Requesting Physician: Mike Carlson Primary Care Provider: Javier Barrios MD - Consult Narrative Reason for consult: Left knee OM/septic arthritis History of present illness: Ms. Roger is a 66 year old female with a past medical history of arthritis, hyperlipidemia, hypertension, status post bilateral knee replacements in 1997 followed by a right knee prosthetic joint infection in 2013. The patient was admitted to the hospital July 05 for sepsis, left leg wound infection, and acute kidney injury with suicidal ideations. We're consulted July 09 for antibiotic recommendations regarding left knee infection. Briefly, the patient's a 66-year-old female with past medical history as stated above. The patient sustained an ulceration to the lateral aspect of the left lower extremity that started back in January. The etiology of the ulceration is not entirely clear, the patient states that her motorized wheelchair was broken and she had use a different wheelchair that caused her legs to dangle and become very swollen and she developed an ulceration. She denies any no trauma. He states the ulceration was getting better, but then acutely got worse. She was referred to the wound clinic here at [facility] and had an MRI that showed an infection of the left knee. She states over the past week, the wound worsened and started draining foul-smelling drainage. She states that since she had a previous prosthetic joint infection she knew how painful and miserable she was at that time, so she decided that she did not want to go through that and she took a large amount of her oxycodone in an attempt to kill herself. She presented to the emergency department for evaluation. On presentation to the ER , the patient had a low-grade fever was tachycardic. She had leukocytosis with neutrophilic predominance in acute kidney injury. She also had a mildly elevated troponin. Urinalysis was negative. Blood cultures were obtained [address] of the lower x-ray showed a left total knee arthroplasty with a joint effusion as well as changes consistent with septic arthritis and possible osteo- myelitis. There are also findings consistent with possible abscesses in the lateral and medial subcutaneous tissue at the level of the distal femur. Wound culture was obtained that is growing Pasteurella canis. She was started on the linezolid and Zosyn. She was admitted to the hospital for further evaluation. Since admission, the patient's white blood cell count has normalized. Her acute kidney injury has resolved. The patient's been seen by psychiatry and has just been started on it on an antidepressant and states that she is no longer suicidal. She was seen by general surgery who recommended an orthopedics consult given the extensive nature of the infection in the knee joint. Orthopedics saw the patient and recommended an arthrocentesis, but at that time the patient declined and orthopedics recommended continuing IV antibiotics and the patient should follow-up with her orthopedist in [place]. Currently, the patient is on IV Zyvox and IV Zosyn. We have been asked to evaluate and make further recommendations. During my exam today, the patient states that other than her leg she was in her usual state of health. She denies any fevers or chills or rigors. She does report some recent neck pain, but states she states thinks it secondary to her pillows. She reports chronic nasal congestion and sinus issues that are at baseline. She states she takes Mucinex for a chronic cough. She denies chest pain or shortness of breath. She denies any nausea, vomiting, diarrhea, or constipation. She denies any abdominal pain or urinary complaints. She does report that she's had some intermittent loose stools since starting on antibiotics. She denies any oral thrush or new skin lesions. She reports chronic all-over pain for which she sees a chest pain coordinator in [place]. The patient lives at home alone. She does have 2 cats, but states she's had people helping her with a letter boxes. She denies any recent bites or scratches she is aware of. She is a retired chief librarian branch or department. She does not smoke, drink alcohol, or do any drugs. CC: Mike Carlson Past Med Surg Social Fam HX - Past Medical History Attestation: Yes The following information was validated with the patient. Source: patient, old records reviewed, nursing notes reviewed Medical history: arthritis, hyperlipidemia, hypertension, other Psychiatric history: depression - Past Surgical History Surgical History: hip replacement, knee replacement (Bilateral, 1997), MARY/BSO, other (Right knee PJI status post 2 stage exchange 2013) - Social History Smoking Status: Never smoker Smokeless Tobacco Status: No Alcohol use: none Drug use: none Occupational status: retired Current living situation: Home - Independent Activity Level: Uses cane/walker Recent Out of Country Travel Within the Last 8 Weeks: No Exposure or Possible Exposure to Illness During Travel: No - Family History Mother Living Status: Hx Family Cardiac Disorders: Yes Hx Family Respiratory Disorders: No Hx Family Cancer: Yes Hx Family GI Disorders: Yes Hx Family Endocrine Disorder: Yes Hx Family Neuromuscular Disorders: Yes Hx Family Neurologic Disorders: No Hx Family HEENT Disorders: No Hx Family Autoimmune Disorders: No Father Living Status: Hx Family Cardiac Disorders: Yes Hx Family Respiratory Disorders: No Hx Family Cancer: No Hx Family GI Disorders: No Hx Family Endocrine Disorder: No Hx Family Neuromuscular Disorders: No Hx Family Neurologic Disorders: No Hx Family HEENT Disorders: No Hx Family Autoimmune Disorders: No Infectious Disease-CN:Meds CloNIDine HCl 0.1 mg PO BID 07/22/15 [History] Desvenlafaxine Succinate [Pristiq] 50 mg PO QAM 07/22/15 [History] Lisinopril-HCTZ 10-12.5 [Prinzide 10-12.5] 1 tab PO BID 07/22/15 [History] Docusate [Colace] 300 mg PO HS 06/05/16 [History] L. Acidophilus/Pectin, Chamita [Acidophilus Probiotic Capsule] 1 each PO DAILY [History] Multivitamin [Multi-Day Vitamins] 1 each PO DAILY 06/05/16 [History] Pseudoephedrine [Sudafed] 60 mg PO TID 06/05/16 [History] Simvastatin [Zocor] 20 mg PO HS 06/05/16 [History] Cyclobenzaprine HCl 10 mg PO TID #28 tablet 08/01/16 [Rx] Collagenase Oint [Santyl] 1 appl TP DAILY 07/05/17 [History] Gentamicin Sulfate [Gentamicin Sulfate] 1 appl TP DAILY 07/05/17 [History] Guaifenesin [Mucinex] 600 mg PO Q12H PRN 07/05/17 [History] Mupirocin [Bactroban Oint] 1 appl TP DAILY 07/05/17 [History] OxyCODONE ER (12 HR) [OxyCONTIN] 80 mg PO Q8H 07/05/17 [History] Oxycodone HCl [Oxycodone HCl] 20 mg PO TID 07/05/17 [History] 3 Allergy/AdvReac Type Severity Reaction Status Date / Time clorazepate dipotassium Allergy Itching Verified 06/05/16 13:56 [From Tranxene T-Tab] atorvastatin [From Lipitor] AdvReac Nausea Verified 06/05/16 13:56 bupropion [From Wellbutrin] AdvReac Agitated Verified 06/05/16 13:56 divalproex sodium AdvReac Vomiting Verified 06/05/16 13:56 [From Depakote] eszopiclone [From Lunesta] AdvReac Headache Verified 06/05/16 13:56 gabapentin AdvReac Blurry Verified 06/05/16 13:56 Vision mirtazapine [From Remeron] AdvReac Confusion Verified 06/05/16 13:56 Nefazodone [From Serzone] AdvReac Confusion Verified 06/05/16 13:56 vancomycin AdvReac Itching Verified 06/05/16 13:56 All systems: reviewed and no additional remarkable complaints except as stated Exam - Constitutional Vitals: Temp Pulse Resp BP Pulse Ox 97.5 F L 97 20 156/95 96 07/09/17 07:55 07/09/17 07:55 07/09/17 07:55 07/09/17 07:55 07/09/17 07:55 General appearance: cooperative, morbidly obese, no acute distress - Head Head exam: Present: atraumatic, normal inspection, normocephalic - Eye Eye exam: Present: EOMI, normal appearance, PERRL Pupils: Present: normal accommodation - ENT ENT exam: Present: mucous membranes moist - Neck Neck exam: Present: normal inspection - Respiratory Respiratory exam: Present: CTAB. Absent: rales, respiratory distress, rhonchi, wheezes - Cardiovascular Cardiovascular exam: Present: RRR, +S1, +S2 - GI/Abdominal GI/Abdominal exam: Present: distended (obese), normal bowel sounds, soft. Absent: tenderness - Extremities Exam Extremities exam: Present: pedal edema (BLE lymphedema noted), tenderness (BLE) . Absent: joint swelling Additional comments: Ulceration noted to the lateral aspect of the left LE at the level of the distal femur with large amount of foul-smelling purulent drainage. No erythema of the knee noted. ROM painful. No warmth or erythema noted. - Neurological Exam Neurological exam: Present: alert, oriented X3, no focal deficits - Psychiatric Psychiatric exam: Present: normal affect, normal mood - Skin Skin exam: Present: dry, intact, normal color, warm Infectious Disease CN: Results - Labs CBC & Chem 7: 07/08/17 02:37 07/08/17 02:37 Cultures: Cultures 07/05/17 20:20 Wound Culture - Final Left Leg Pasteurella canis 07/05/17 20:39 Blood Culture - Preliminary Peripheral Venipuncture No growth. 07/05/17 20:31 Blood Culture - Preliminary Peripheral Venipuncture No growth. Consult Discharge Plan - Plan Referrals: Javier Barrios MD [Primary Care Provider] -
[2017-07-09] MEDS: Piperacillin/Tazobactam 3.375 GM/200 ML BAG IVPB SCH (15:04)
--- NOTE | 2017-07-09 15:15 | Internal Med Progress Note ---
<Ranulfo Elise - Last Filed: 07/09/17 15:13> Date of Encounter: 07/09/17 Time of Encounter: 11:00 - Assessment and plan (1) Septic arthritis Current Visit: Yes Status: Acute Assessment and plan: Patient presented with lower left extremity wound, lower left leg cellulitis and high concern for septic arthritis. Patient has refused aspiration attempts by orthopedic surgery. Patient was persisted developing transferred to her previous orthopedic surgeon Dr. King's office for intervention. After contacting Dr. King's office they did not okay transfer but would be willing to see the patient in the outpatient setting. - Patient currently on Zyvox and Zosyn, infectious disease evaluated the patient and is changing her Zyvox to daptomycin given her current antidepressant medications. - Simvastatin has been discontinued secondary to daptomycin and risk for muscle tissue breakdown. - I discussed my conversation with Dr. King's office with Mrs. Roger, we continue to recommend reevaluation by orthopedic surgery here at our facility or potential transfer to [facility] or another facility for evaluation. Patient wishes to think about her options. Qualifiers: Septic arthritis location: knee Septic arthritis organism: due to unspecified organism Laterality: left Qualified Code(s): M00.9 - Pyogenic arthritis, unspecified (2) Left leg cellulitis Current Visit: Yes Status: Acute Assessment and plan: Lower left extremity cellulitis secondary to wound infection and highly suspicious for septic left knee joint. - Antibiotics and intervention as discussed above. (3) Lymphedema Current Visit: Yes Status: Acute Assessment and plan: Patient has a history of long-standing lymphedema, lower left extremity wound for which she is seen in wound clinic for treatment. Continue current management. (4) Suicide attempt Current Visit: Yes Status: Acute Assessment and plan: She states she also took about 15-20 pills of oxycodone with suicidal intent. - Patient has a sitter currently - Evaluate by psychiatry who highly recommend either inpatient or outpatient psychiatric follow-up. (5) DVT prophylaxis Current Visit: Yes Status: Acute Assessment and plan: Continue subcutaneous heparin every 8 hours. - Subjective Interval history: Mrs. Roger has been seen about the patient bedside this morning. She is lying in bed in no acute distress but complains of left knee pain. She had requested that her previous orthopedic surgeon Dr. King Reda primary on her septic knee and she requested transfer to their facility. She denies any other chest pain, shortness of breath chest pressure, dull pains nausea vomiting diarrhea constipation fevers or chills. She does continue to have lower left knee pain and feels that her lymphedema has increased over the last several days. After contacting dionne Bradley with Dr. King's office, they did not accept transfer this was discussed with Mrs. Roger, we continue to recommend surgical intervention which is emphasized by orthopedic surgery, general surgery and infectious disease. Mrs. Roger wishes to think about her options if she would like to have orthopedic surgery at our facility intervened or be transferred to another facility such as [facility]. - Constitutional Vitals: Temp Pulse Resp BP Pulse Ox 98.3 F 81 20 173/98 97 07/09/17 15:04 07/09/17 15:04 07/09/17 15:04 07/09/17 15:04 07/09/17 15:04 General appearance: Present: A&O X 3, morbidly obese, no acute distress, answers questions appropriately Exam: General: Patient alert, awake, oriented 3, interactive, in no acute distress HEENT: Normocephalic, atraumatic, oral mucosa moist, neck supple trachea midline no palpable lymphadenopathy, no thyromegaly. Chest: Symmetric bilateral correlating with respiratory effort, effort nonlabored. Cardiac: Regular rate and rhythm, positive S1 and S2. no bruits appreciated bilateral carotids, Radial pulses 2+ bilateral, posterior tibial and dorsal pedal pulses 2+ bilateral. Respiratory: Clear to auscultation all lung mario Abdomen: Soft, nontender, positive bowel sounds, no palpable masses appreciated on examination Extremities: Patient has significant lymphedema in bilateral lower extremities with venous stasis changes, wound to left lateral lower extremity is currently bandaged, with warmth surrounding the knee joints and surrounding tissues.. Neurologic: No focal deficits appreciated on examination. Face symmetric Internal Medicine: Result - Labs CBC & Chem 7: 07/08/17 02:37 07/08/17 02:37 - ABG Interpretation ABG results: PT/INR, D-dimer PT 13.4 Seconds (9.4-12.1) H 07/07/17 14:15 D-Dimer 1571 ng/mLFEU (0-500) H 07/06/17 00:57 Consult Discharge Plan - Plan Referrals: Javier Barrios MD [Primary Care Provider] - <Mike Carlson H - Last Filed: 07/09/17 15:29> Date of Encounter: 07/09/17 - Constitutional Vitals: Temp Pulse Resp BP Pulse Ox 98.3 F 81 20 173/98 97 07/09/17 15:04 07/09/17 15:04 07/09/17 15:04 07/09/17 15:04 07/09/17 15:04 Internal Medicine: Result - Labs CBC & Chem 7: 07/08/17 02:37 07/08/17 02:37 - ABG Interpretation ABG results: PT/INR, D-dimer PT 13.4 Seconds (9.4-12.1) H 07/07/17 14:15 D-Dimer 1571 ng/mLFEU (0-500) H 07/06/17 00:57 - Attending Attestation sepsis 2ry to left lower extremity cellulitis , possible septic arthritis I examined this patient and my medical decision-making was reviewed with the Resident Physician. I agree with the documented findings, disposition and treatment plan as described except to the extent set forth below.
[2017-07-09] MEDS ORDERED: SODIUM CHLORIDE 0.9% IVPB SCH (18:00)
[2017-07-09] MEDS ORDERED: DAPTOMYCIN IVPB SCH (18:00)
[2017-07-09] MEDS: Gentamicin Oint 15 GM TUBE TP SCH (20:28)
[2017-07-10] MEDS: Piperacillin/Tazobactam 3.375 GM/200 ML BAG IVPB SCH ×4 (00:14→23:49)
[2017-07-10] MEDS: *HR* Heparin 5,000 UNIT/ML VIAL SQ SCH ×3 (05:00→22:02)
[2017-07-10 05:15] LABS: Hematocrit 31.6 % (35.3-44.9); Immature Granulocytes % 2.5 % (0-4); Lymphocytes % 12.4 %; Mean Corpuscular HGB Conc 32.3 g/dL (31.6-35.5); Mean Corpuscular Hemoglobin 28.7 pg (28.0-33.3); Mean Platelet Volume 9.4 fL (9.4-12.4); Monocytes % 8.1 %; Platelet Count 373 K/mcL (140-400); Red Blood Count 3.55 M/mcL (3.82-4.97); Red Cell Distribution Width 13.9 % (11.5-14.5)
[2017-07-10 05:16] LABS: Basophils # 0.1 K/mcL (0.0-0.2); Basophils % 0.5 %; Eosinophils # 0.1 K/mcL (0.0-0.6); Eosinophils % 0.5 %; Lymphocytes # 1.4 K/mcL (0.6-4.6); Monocytes # 0.9 K/mcL (0.0-1.3); Neutrophils # 8.3 K/mcL (1.6-8.9)
[2017-07-10 05:17] LABS: Hemoglobin 10.2 g/dL (11.5-15.4)
[2017-07-10 05:41] LABS: Alanine Aminotransferase 37 Units/L (0-55); Albumin 2.2 g/dL (3.5-5.0); Albumin/Globulin Ratio 0.5 (1.1-2.2); Alkaline Phosphatase 86 Units/L (38-126); Aspartate Amino Transferase 32 Units/L (5-34); BUN/Creatinine Ratio 17 (6-26); Bilirubin,Total 0.2 mg/dL (0.2-1.2); Calcium 9.2 mg/dL (8.6-10.8); Carbon Dioxide 21 mEq/L (19-29); Chloride 107 mEq/L (98-109); Globulin 4.3 g/dL (2.4-3.5); Glucose 110 mg/dL (70-99); Osmolality,Calculated 287 (280-300); Potassium 3.5 mEq/L (3.5-4.5); Sodium 138 mEq/L (136-145); Total Protein 6.5 g/dL (6.0-8.3); eGFR For African Americans > 60 (> 60); eGFR For Non-African Americans > 60 (> 60)
[2017-07-10 05:43] LABS: Blood Urea Nitrogen 14 mg/dL (7-20)
[2017-07-10] MEDS: Insulin LISPRO 300 UNITS/3 ML VIAL SQ SCH ×3 (07:58→19:21)
--- NOTE | 2017-07-10 08:36 | Internal Med Progress Note ---
<Ranulfo Elise - Last Filed: 07/10/17 11:46> Date of Encounter: 07/10/17 Time of Encounter: 08:35 - Assessment and plan (1) Septic arthritis Current Visit: Yes Status: Acute Assessment and plan: Patient presented with lower left extremity wound, lower left leg cellulitis and high concern for septic arthritis. Patient has refused aspiration attempts by orthopedic surgery. Patient was persisted developing transferred to her previous orthopedic surgeon Dr. King's office for intervention. After contacting Dr. King's office they did not okay transfer but would be willing to see the patient in the outpatient setting. - Patient currently on Zyvox and Zosyn, infectious disease evaluated the patient and is changing her Zyvox to daptomycin given her current antidepressant medications. - Simvastatin has been discontinued secondary to daptomycin and risk for muscle tissue breakdown. - I discussed my conversation with Dr. King's office with Mrs. Roger, we continue to recommend reevaluation by orthopedic surgery here at our facility or potential transfer to [facility] or another facility for evaluation. Patient wishes to think about her options. - We will talk with orthopedic surgery today regarding plan for intervention. Qualifiers: Septic arthritis location: knee Septic arthritis organism: due to unspecified organism Laterality: left Qualified Code(s): M00.9 - Pyogenic arthritis, unspecified (2) Left leg cellulitis Current Visit: Yes Status: Acute Assessment and plan: Lower left extremity cellulitis secondary to wound infection and highly suspicious for septic left knee joint. - Wound culture growing Pasteurella. Sensitivities still pending. - Continue daptomycin and Zosyn IV. (3) Lymphedema Current Visit: Yes Status: Acute Assessment and plan: Patient has a history of long-standing lymphedema, lower left extremity wound for which she is seen in wound clinic for treatment. Continue current management. (4) Suicide attempt Current Visit: Yes Status: Acute Assessment and plan: She states she also took about 15-20 pills of oxycodone with suicidal intent. - Evaluate by psychiatry who highly recommend either inpatient or outpatient psychiatric follow-up. (5) HTN (hypertension) Current Visit: No Status: Chronic Assessment and plan: Patient has known hypertension, home medications include clonidine and lisinopril-hydrochlorothiazide. Medications were held secondary to sepsis - Currently hypertensive Plan: - Restart 0.1 clonidine - Start lisinopril 10mg Qualifiers: Hypertension type: essential hypertension Qualified Code(s): I10 - Essential (primary) hypertension (6) DVT prophylaxis Current Visit: Yes Status: Acute Assessment and plan: Continue subcutaneous heparin every 8 hours. - Subjective Interval history: Mrs. Roger has been seen about the patient bedside this morning. She is lying in bed in no acute distress but complains of left knee pain. She denies any new pains, discomforts or concerns. She states that she was a little chilled overnight and turned up her room temperature. She denies any subjective fevers nausea vomiting or diarrhea. She states that she spoke with Dr. Thao and he told her that Dr. King is the only orthopedic physician recommended handle her case. - Constitutional Vitals: Temp Pulse Resp BP Pulse Ox 98.1 F 90 18 187/100 91 07/10/17 07:07 07/10/17 07:07 07/10/17 07:07 07/10/17 07:07 07/10/17 07:07 General appearance: Present: A&O X 3, morbidly obese, no acute distress, answers questions appropriately Exam: General: Patient alert, awake, oriented 3, interactive, in no acute distress HEENT: Normocephalic, atraumatic, oral mucosa moist, neck supple trachea midline no palpable lymphadenopathy, no thyromegaly. Chest: Symmetric bilateral correlating with respiratory effort, effort nonlabored. Cardiac: Regular rate and rhythm, grade 2/6 systolic ejection murmur, Radial pulses 2+ bilateral, posterior tibial and dorsal pedal pulses 2+ bilateral. Respiratory: Clear to auscultation all lung mario Abdomen: Soft, nontender, positive bowel sounds, no palpable masses appreciated on examination Extremities: Patient has significant lymphedema in bilateral lower extremities with venous stasis changes, wound to left lateral lower extremity is currently bandaged, with warmth surrounding the knee joints and surrounding tissues.. Neurologic: No focal deficits appreciated on examination. Face symmetric Internal Medicine: Result - Labs CBC & Chem 7: 07/10/17 04:39 07/10/17 04:39 Labs: Short CBC 07/10/17 Range/Units 04:39 WBC 10.9 (4.3-11.1) K/mcL Hgb 10.2 L D (11.5-15.4) g/dL Hct 31.6 L (35.3-44.9) % Plt Count 373 (140-400) K/mcL Neutrophils # 8.3 (1.6-8.9) K/mcL BMP 07/10/17 04:39 Sodium 138 Potassium 3.5 Chloride 107 Carbon Dioxide 21 BUN 14 D Creatinine 0.81 Glucose 110 H Calcium 9.2 Liver Function 07/10/17 Range/Units 04:39 Total Bilirubin 0.2 (0.2-1.2) mg/dL AST 32 (5-34) Units/L ALT 37 (0-55) Units/L Alkaline Phosphatase 86 (38-126) Units/L Albumin 2.2 L (3.5-5.0) g/dL - ABG Interpretation ABG results: PT/INR, D-dimer PT 13.4 Seconds (9.4-12.1) H 07/07/17 14:15 D-Dimer 1571 ng/mLFEU (0-500) H 07/06/17 00:57 Consult Discharge Plan - Plan Referrals: Javier Barrios MD [Primary Care Provider] - <Mike Carlson H - Last Filed: 07/10/17 17:50> Date of Encounter: 07/10/17 - Constitutional Vitals: Temp Pulse Resp BP Pulse Ox 98.4 F 98 16 174/98 98 07/10/17 13:42 07/10/17 13:46 07/10/17 13:46 07/10/17 13:42 07/10/17 13:46 Internal Medicine: Result - Labs CBC & Chem 7: 07/10/17 04:39 07/10/17 04:39 Labs: Short CBC 07/10/17 Range/Units 04:39 WBC 10.9 (4.3-11.1) K/mcL Hgb 10.2 L D (11.5-15.4) g/dL Hct 31.6 L (35.3-44.9) % Plt Count 373 (140-400) K/mcL Neutrophils # 8.3 (1.6-8.9) K/mcL BMP 07/10/17 04:39 Sodium 138 Potassium 3.5 Chloride 107 Carbon Dioxide 21 BUN 14 D Creatinine 0.81 Glucose 110 H Calcium 9.2 Liver Function 07/10/17 Range/Units 04:39 Total Bilirubin 0.2 (0.2-1.2) mg/dL AST 32 (5-34) Units/L ALT 37 (0-55) Units/L Alkaline Phosphatase 86 (38-126) Units/L Albumin 2.2 L (3.5-5.0) g/dL - ABG Interpretation ABG results: PT/INR, D-dimer PT 13.4 Seconds (9.4-12.1) H 07/07/17 14:15 D-Dimer 1571 ng/mLFEU (0-500) H 07/06/17 00:57 - Attending Attestation Started on Daptomycin family trying to get in tough with Dr King I examined this patient and my medical decision-making was reviewed with the Resident Physician. I agree with the documented findings, disposition and treatment plan as described except to the extent set forth below.
[2017-07-10] MEDS: Loratadine 10 MG TABLET PO SCH (09:23)
[2017-07-10] MEDS: Lactobacillus 1 EACH CAP.SPRINK PO SCH (09:23)
[2017-07-10] MEDS: Thiamine (B-1) 100 MG TABLET PO SCH ×2 (09:23→22:04)
[2017-07-10] MEDS: cloNIDine HCl 0.1 MG TABLET PO SCH ×2 (09:23→22:04)
[2017-07-10] MEDS: Multivit/Ca/Min/Fe/FA 1 TAB TABLET PO SCH (09:23)
[2017-07-10] MEDS: Acetaminophen 325 MG TABLET PO PRN (09:23)
[2017-07-10] MEDS: Ascorbic Acid 500 MG TABLET PO SCH ×2 (09:23→22:04)
[2017-07-10] MEDS: Cyanocobalamin (B-12) 1,000 MCG TABLET PO SCH (09:23)
[2017-07-10] MEDS: Fluticasone Propionate Nasal 50 MCG/SPRAY BOTTLE NS SCH (09:24)
[2017-07-10] MEDS: Zinc Sulfate 220 MG CAPSULE PO SCH ×2 (09:24→22:04)
[2017-07-10] MEDS: Aspirin 81 MG TAB.CHEW PO SCH (09:24)
[2017-07-10] MEDS: Venlafaxine XR (24 HR) 75 MG CAP.ER.24H PO SCH (09:24)
--- NOTE | 2017-07-10 15:38 | Infectious Disease Progress No ---
Date of Encounter: 07/10/17 Time of Encounter: 15:36 - Assessment and Plan (1) Severe sepsis Current Visit: Yes Status: Acute The patient had two SIRS criteria plus hypotension responsive to IVF and MESHA. Likely secondary to left knee PJI/OM/abscess/wound infection. Improved. WBC has normalized. Tachycardia has improved. Blood cultures drawn 07/05/17 are NGTD x 2 sets. (2) Infection of prosthetic left knee joint Current Visit: Yes Status: Acute Location: Left knee. Causative organism unclear. Patient refused arthrocentesis. Wound culture positive for Pasturella canis, but consider polymicrobial infection given the extent of the infection and lack of culture of the actual joint fluid. Secondary to left leg wound infection. Status post bilateral TKR in 1997. 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 CT of the LLE showed left total knee hardware with effusion and findings consistent with septic arthritis and possible osteomyelitis as well as possible abscesses. Xray of the left knee showed findings consistent with septic arthritis and OM as well. Orthopedics consulted. Attempted arthrocentesis, but the patient refused. Recommend arthrocentesis at this time as the patient is now agreeable. Send fluid for cell count with differential, protein, LDH, glucose, and culture ( aerobic and anaerobic). Check ESR and CRP. Add to this morning's labs. The patient will likely require surgical intervention to ensure adequate source control of the infection. Recommend transfer to a facility where the patient can be evaluated by her orthopedic surgeon. The patient is agreeable to this, but her orthopedist has refused her for transfer. Consider transferring patient to tertiary care center if out ortho team does not feel comfortable operating on the patient here. Continue Zosyn 3.375 grams IV Q8H. Continue Daptomycin 6mg/kg IV daily. Baseline CK level normal. Repeat in 1 week. No statin therapy while on the Daptomycin. Duration of treatment depends on the clinical picture, but likely 6 weeks from the date of surgery. Monitor renal function and for drug toxicity and dose-adjust antibiotics. Qualifiers: Encounter type: initial encounter Qualified Code(s): T84.54XA - Infection and inflammatory reaction due to internal left knee prosthesis, initial encounter (3) Osteomyelitis Current Visit: Yes Status: Acute Location: Tibial plateau and patella. Causative organism unclear. Antibiotics and recommendations as above. Qualifiers: Osteomyelitis type: acute hematogenous Osteomyelitis location: other site Qualified Code(s): M86.08 - Acute hematogenous osteomyelitis, other sites (4) Left leg cellulitis Current Visit: Yes Status: Acute Noted on admission. No evidence of cellulitis at this time. Secondary to left leg wound infection. Causative organism unclear. Improved. Continue antibiotics as above. (5) Abscess Current Visit: Yes Status: Acute Location: Lateral subcutaneous fat at the level of the distal femur of the LLE as well as medial subcutaneous fat at the level of the distal femur and proximal tibia. Wound culture is positive for Pasturella canis, but concern for polymicrobial infection given the extent of the infection. General surgery consulted and following. Continue antibiotics as above. Wound care per the general surgery team. (6) Acute kidney injury Current Visit: Yes Status: Acute Likely secondary to sepsis. Resolved. (7) Suicidal ideation Current Visit: Yes Status: Acute Secondary to major depressive disorder. Psych consulted. (8) Pressure ulcer of left leg, unstageable Current Visit: No Status: Acute Location: Left lateral leg. Etiology unclear. Continue wound care per the surgery team. (9) Chronic pain syndrome Current Visit: No Status: Chronic (10) Lymphedema of both lower extremities Current Visit: No Status: Acute Consider referral to lymphedema clinic as an outpatient. (11) Major depress dis, severe Current Visit: Yes Status: Acute Psychiatry consulted and following. (12) HTN (hypertension) Current Visit: No Status: Chronic Qualifiers: Hypertension type: essential hypertension Qualified Code(s): I10 - Essential (primary) hypertension - Subjective Interval history: Patient seen and examined. No acute events noted overnight. Patient resting quietly in bed with friend at bedside. States she continues to have her chronic "all-over" pain. Denies chest pain, reports dyspnea on exertion and chronic cough secondary to her chronic sinus issues. Reports nausea, poor appetite, but denies vomiting. Denies oral thrush or new skin lesions. Infect Dis PN-Objective Data - Labs CBC & Chem 7: 07/10/17 04:39 07/10/17 04:39 Labs: Laboratory Results - last 24 hr 07/09/17 07/09/17 07/10/17 11:25 21:59 04:39 WBC 10.9 RBC 3.55 L Hgb 10.2 L D Hct 31.6 L MCV 89.0 MCH 28.7 MCHC 32.3 RDW 13.9 Plt Count 373 MPV 9.4 Immature Gran % 2.5 Seg Neutrophils % 76.0 Lymphocytes % 12.4 Monocytes % 8.1 Eosinophils % 0.5 Basophils % 0.5 Neutrophils # 8.3 Lymphocytes # 1.4 Monocytes # 0.9 Eosinophils # 0.1 Basophils # 0.1 Sodium Potassium Chloride Carbon Dioxide BUN Creatinine Est GFR ( Amer) Est GFR (Non-Af Amer) BUN/Creatinine Ratio Glucose POC Glucose 116 H 108 H Calculated Osmolality Calcium Total Bilirubin AST ALT Alkaline Phosphatase Serum Total Protein Albumin Globulin Albumin/Globulin Ratio 07/10/17 07/10/17 04:39 12:38 WBC RBC Hgb Hct MCV MCH MCHC RDW Plt Count MPV Immature Gran % Seg Neutrophils % Lymphocytes % Monocytes % Eosinophils % Basophils % Neutrophils # Lymphocytes # Monocytes # Eosinophils # Basophils # Sodium 138 Potassium 3.5 Chloride 107 Carbon Dioxide 21 BUN 14 D Creatinine 0.81 Est GFR ( Amer) > 60 Est GFR (Non-Af Amer) > 60 BUN/Creatinine Ratio 17 Glucose 110 H POC Glucose 116 H Calculated Osmolality 287 Calcium 9.2 Total Bilirubin 0.2 AST 32 ALT 37 Alkaline Phosphatase 86 Serum Total Protein 6.5 Albumin 2.2 L Globulin 4.3 H Albumin/Globulin Ratio 0.5 L Exam - Constitutional Vitals: Temp Pulse Resp BP Pulse Ox 98.4 F 98 16 174/98 98 07/10/17 13:42 07/10/17 13:46 07/10/17 13:46 07/10/17 13:42 07/10/17 13:46 General appearance: cooperative, morbidly obese, no acute distress - Head Head exam: Present: atraumatic, normal inspection, normocephalic - Eye Eye exam: Present: EOMI, normal appearance, PERRL Pupils: Present: normal accommodation - ENT ENT exam: Present: mucous membranes moist - Neck Neck exam: Present: normal inspection - Respiratory Respiratory exam: Present: CTAB. Absent: rales, respiratory distress, rhonchi, wheezes - Cardiovascular Cardiovascular exam: Present: RRR, +S1, +S2 - GI/Abdominal GI/Abdominal exam: Present: distended (obese), normal bowel sounds, soft. Absent: tenderness - Extremities Exam Additional comments: BLE lymphedema noted. Left lateral leg wound dressing C/D/I. - Neurological Exam Neurological exam: Present: alert, oriented X3, no focal deficits - Psychiatric Psychiatric exam: Present: normal affect, normal mood - Skin Skin exam: Present: dry, intact, normal color, warm Consult Discharge Plan - Plan Referrals: Javier Barrios MD [Primary Care Provider] -
[2017-07-10] MEDS ORDERED: Lidocaine -MPF 1% 2 ML VIAL INFILT ONE (16:45)
[2017-07-10] MEDS ORDERED: DAPTOmycin 800 MG in 0.9 % Sodium Chloride 100 ML IVPB SCH (18:00)
[2017-07-10] MEDS: Gentamicin Oint 15 GM TUBE TP SCH ×2 (19:38→22:03)
[2017-07-10] MEDS: 0.9 % Sodium Chloride 1,000 ML IVC SCH ×2 (19:39→19:40)
[2017-07-11 05:11] LABS: Basophils # 0.1 K/mcL (0.0-0.2); Basophils % 0.4 %; Eosinophils # 0.1 K/mcL (0.0-0.6); Eosinophils % 0.4 %; Hematocrit 32.3 % (35.3-44.9); Hemoglobin 10.4 g/dL (11.5-15.4); Immature Granulocytes % 2.6 % (0-4); Lymphocytes # 1.8 K/mcL (0.6-4.6); Lymphocytes % 13.2 %; Mean Corpuscular HGB Conc 32.2 g/dL (31.6-35.5); Mean Platelet Volume 9.2 fL (9.4-12.4); Monocytes # 1.2 K/mcL (0.0-1.3); Monocytes % 8.6 %; Neutrophils # 10.3 K/mcL (1.6-8.9); Nucleated Red Blood Cells 0.1 /100 WBC (0); Platelet Count 400 K/mcL (140-400); Red Blood Count 3.59 M/mcL (3.82-4.97); Red Cell Distribution Width 14.6 % (11.5-14.5); Segmented Neutrophils % 74.8 %
[2017-07-11 05:22] LABS: Alanine Aminotransferase 38 Units/L (0-55); Albumin 2.3 g/dL (3.5-5.0); Albumin/Globulin Ratio 0.6 (1.1-2.2); Alkaline Phosphatase 84 Units/L (38-126); Aspartate Amino Transferase 32 Units/L (5-34); BUN/Creatinine Ratio 20 (6-26); Bilirubin,Total 0.4 mg/dL (0.2-1.2); Blood Urea Nitrogen 16 mg/dL (7-20); Calcium 9.5 mg/dL (8.6-10.8); Carbon Dioxide 25 mEq/L (19-29); Chloride 108 mEq/L (98-109); Globulin 3.8 g/dL (2.4-3.5); Glucose 110 mg/dL (70-99); Osmolality,Calculated 290 (280-300); Potassium 3.8 mEq/L (3.5-4.5); Sodium 139 mEq/L (136-145); Total Protein 6.1 g/dL (6.0-8.3); eGFR For African Americans > 60 (> 60); eGFR For Non-African Americans > 60 (> 60)
[2017-07-11] MEDS: *HR* Heparin 5,000 UNIT/ML VIAL SQ SCH (05:23)
[2017-07-11 07:29] VITALS: BP 183/85
[2017-07-11] MEDS: Loratadine 10 MG TABLET PO SCH (08:53)
[2017-07-11] MEDS: Insulin LISPRO 300 UNITS/3 ML VIAL SQ SCH ×2 (08:53→12:54)
[2017-07-11] MEDS: Aspirin 81 MG TAB.CHEW PO SCH (08:53)
[2017-07-11] MEDS: Cyanocobalamin (B-12) 1,000 MCG TABLET PO SCH (08:53)
[2017-07-11] MEDS: Zinc Sulfate 220 MG CAPSULE PO SCH (08:53)
[2017-07-11] MEDS: Ascorbic Acid 500 MG TABLET PO SCH (08:54)
[2017-07-11] MEDS: Multivit/Ca/Min/Fe/FA 1 TAB TABLET PO SCH (08:54)
[2017-07-11] MEDS: Lactobacillus 1 EACH CAP.SPRINK PO SCH (08:54)
[2017-07-11] MEDS: cloNIDine HCl 0.1 MG TABLET PO SCH (08:54)
[2017-07-11] MEDS: Thiamine (B-1) 100 MG TABLET PO SCH (08:54)
[2017-07-11] MEDS: Fluticasone Propionate Nasal 50 MCG/SPRAY BOTTLE NS SCH (08:55)
[2017-07-11] MEDS: *HR* Morphine 2 MG/ML SYRINGE IVP PRN ×2 (08:57→12:27)
[2017-07-11] MEDS ORDERED: DESVENLAFAXINE 50 MG PO SCH (09:00)
[2017-07-11] MEDS: Piperacillin/Tazobactam 3.375 GM/200 ML BAG IVPB SCH (09:43)
--- NOTE | 2017-07-11 10:22 | Discharge Summary ---
Date of Encounter: 07/11/17 Time of Encounter: 10:20 - Discharge Diagnosis (1) Septic arthritis Priority: Primary Status: Acute Qualifiers: Septic arthritis location: knee Septic arthritis organism: due to unspecified organism Laterality: left Qualified Code(s): M00.9 - Pyogenic arthritis, unspecified (2) Osteomyelitis Priority: Primary Status: Acute Qualifiers: Osteomyelitis type: acute hematogenous Osteomyelitis location: other site Qualified Code(s): M86.08 - Acute hematogenous osteomyelitis, other sites (3) Infection of prosthetic left knee joint Priority: Primary Status: Acute Qualifiers: Encounter type: initial encounter Qualified Code(s): T84.54XA - Infection and inflammatory reaction due to internal left knee prosthesis, initial encounter (4) Suicide attempt Priority: Secondary Status: Acute (5) Left leg cellulitis Priority: Primary Status: Acute (6) HTN (hypertension) Priority: Secondary Status: Chronic Qualifiers: Hypertension type: essential hypertension Qualified Code(s): I10 - Essential (primary) hypertension (7) Lymphedema of both lower extremities Priority: Secondary Status: Chronic - Discharge Medications Home Medications: CloNIDine HCl 0.1 mg PO BID 07/22/15 [History] Desvenlafaxine Succinate [Pristiq] 50 mg PO QAM 07/22/15 [History] Lisinopril-HCTZ 10-12.5 [Prinzide 10-12.5] 1 tab PO BID 07/22/15 [History] Docusate [Colace] 300 mg PO HS 06/05/16 [History] L. Acidophilus/Pectin, Hollister [Acidophilus Probiotic Capsule] 1 each PO DAILY [History] Multivitamin [Multi-Day Vitamins] 1 each PO DAILY 06/05/16 [History] Pseudoephedrine [Sudafed] 60 mg PO TID 06/05/16 [History] Simvastatin [Zocor] 20 mg PO HS 06/05/16 [History] Cyclobenzaprine HCl 10 mg PO TID #28 tablet 08/01/16 [Rx] Collagenase Oint [Santyl] 1 appl TP DAILY 07/05/17 [History] Gentamicin Sulfate [Gentamicin Sulfate] 1 appl TP DAILY 07/05/17 [History] Guaifenesin [Mucinex] 600 mg PO Q12H PRN 07/05/17 [History] Mupirocin [Bactroban Oint] 1 appl TP DAILY 07/05/17 [History] OxyCODONE ER (12 HR) [OxyCONTIN] 80 mg PO Q8H 07/05/17 [History] Oxycodone HCl [Oxycodone HCl] 20 mg PO TID 07/05/17 [History] Allergies/Adverse Reactions: 3 Allergy/AdvReac Type Severity Reaction Status Date / Time clorazepate dipotassium Allergy Itching Verified 06/05/16 13:56 [From Tranxene T-Tab] atorvastatin [From Lipitor] AdvReac Nausea Verified 06/05/16 13:56 bupropion [From Wellbutrin] AdvReac Agitated Verified 06/05/16 13:56 divalproex sodium AdvReac Vomiting Verified 06/05/16 13:56 [From Depakote] eszopiclone [From Lunesta] AdvReac Headache Verified 06/05/16 13:56 gabapentin AdvReac Blurry Verified 06/05/16 13:56 Vision mirtazapine [From Remeron] AdvReac Confusion Verified 06/05/16 13:56 Nefazodone [From Serzone] AdvReac Confusion Verified 06/05/16 13:56 vancomycin AdvReac Itching Verified 06/05/16 13:56 Procedures/tests Complete & Pending: Procedures Performed prior 72 hours Category Date Time Status Venous Ultrasound [EV venous imaging LE BI] Routine Y 07/08/17 12:19 Completed Date of admission: 07/06/17 03:30 Primary care physician: Javier Barrios MD Consults: 07/06/17 04:12 Consult to Psychiatry [CONS] Routine Consulting Provider: [facility] Reason for Consult: Suicidal attempt Call Completed: No 07/07/17 15:22 Consult to Occupational Therapy [CONS] Routine Comment: Evaluate, develop and implement POC Reason for Consult: Physical deconditioing Consult to Physical Therapy [CONS] Routine Comment: Evaluate, develop and implement POC Reason for Consult: Physical deconditioing 07/07/17 15:24 Consult to Infectious Diseases [CONS] Routine Consulting Provider: Infectious Disease [facility] Reason for Consult: Septic knee arthritis, Left massage to [employer] Call Completed: Yes 07/08/17 13:37 Consult to Psychiatry [CONS] Routine Consulting Provider: [facility] Reason for Consult: suicide attempt, reevaluate sitter need Call Completed: Yes 07/10/17 16:45 Consult to Invasive Line Access Team [CONS] Routine Reason for Consult: Picc Line Insertion Line Type: PICC - Patient Status Disposition: Transfer Critical Access Hosp Condition: Fair - Discharge Instructions Follow Up With: Javier Barrios MD [Primary Care Provider] - Additional Instructions: Continue Daptomycin and Zosyn IV. Will transfer the patient under the care of Dr King - Diet and Activity Diet: low fat, low cholesterol Hospital course: Ms. Roger is a 66 year old female with a past medical history of arthritis, hyperlipidemia, hypertension, status post bilateral knee replacements in 1997 followed by a right knee prosthetic joint infection in 2013. The patient was admitted to the hospital July 05 for sepsis, left leg wound infection, and acute kidney injury with suicidal ideations. The patient sustained an ulceration to the lateral aspect of the left lower extremity that started back in January. The etiology of the ulceration is not entirely clear, the patient stated that her motorized wheelchair was broken and she had use a different wheelchair that caused her legs to dangle and become very swollen and she developed an ulceration. She denied any trauma. The ulceration was getting better, but then acutely got worse. She was referred to the wound clinic here at [facility] and had an MRI that showed an infection of the left knee. She stated over the past week, the wound worsened and started draining foul-smelling drainage. She stated that since she had a previous prosthetic joint infection she knew how painful and miserable she was at that time, so she decided that she did not want to go through that and she took a large amount of her oxycodone (15-20 pills) in an attempt to kill herself. She presented to the emergency department for evaluation. On presentation to the ER, the patient had a low-grade fever was tachycardic. She had leukocytosis with neutrophilic predominance in acute kidney injury. She also had a mildly elevated troponin. Urinalysis was negative. Blood cultures were obtained [address] showed a left total knee arthroplasty with a joint effusion as well as changes consistent with septic arthritis and possible osteo-myelitis. There are also findings consistent with possible abscesses in the lateral and medial subcutaneous tissue at the level of the distal femur. Wound culture was obtained that is growing Pasteurella canis but a poly microbial infection is suspected. She was started on the linezolid and Zosyn. She was admitted to the hospital for further evaluation. Her acute kidney injury has resolved. The patient's been seen by psychiatry and has just been started on an antidepressant and states that she is no longer suicidal. She was seen by general surgery who recommended an orthopedics consult given the extensive nature of the infection in the knee joint. Orthopedics saw the patient and recommended an arthrocentesis, but at that time the patient declined and orthopedics recommended continuing IV antibiotics and the patient should follow-up with her orthopedist in [place]. The patient has been continued on Zosyn 3.375 grams IV Q8H. Discontinued Zyvox as use of this medication with Effexor is contraindicated due to the high risk for serotonin syndrome. The patient reports an allergy to Vanc. Started Daptomycin IV daily per ID recommendations. Giorgio Torres who works with Dr King has accepted the patient to be transferred to [facility]. - Time Spent with Patient Total time spent providing and/or coordinating discharge services: Greater than 30 minutes (40 min) - Constitutional Vitals: Temp Pulse Resp BP Pulse Ox 98 F 102 16 183/85 95 07/11/17 07:25 07/11/17 07:25 07/11/17 07:25 07/11/17 07:25 07/11/17 07:25 General appearance: Present: A&O X 3, morbidly obese, no acute distress, answers questions appropriately Exam: General: Patient alert, awake, oriented 3, interactive, in no acute distress HEENT: Normocephalic, atraumatic, oral mucosa moist, neck supple trachea midline no palpable lymphadenopathy, no thyromegaly. Chest: Symmetric bilateral correlating with respiratory effort, effort nonlabored. Cardiac: Regular rate and rhythm, grade 2/6 systolic ejection murmur, Radial pulses 2+ bilateral, posterior tibial and dorsal pedal pulses 2+ bilateral. Respiratory: Clear to auscultation all lung mario Abdomen: Soft, nontender, positive bowel sounds, no palpable masses appreciated on examination Extremities: Patient has significant lymphedema in bilateral lower extremities with venous stasis changes, wound to left lateral lower extremity is currently bandaged, with warmth surrounding the knee joints and surrounding tissues. Left popliteal ulcer draining whitish yellowish material.. Neurologic: No focal deficits appreciated on examination. Face symmetric
== END 2017-07-11 15:33 | disposition critical access hospital (66) | DRG 871 ==
LOC: EMEROO 19:31 → 2ANU 19:31 → 2NNU 23:27 → SUATTDRO 07-06 03:30 → 3ANU 07-10 11:37
PROVIDERS: ADMIT Student in an Organized Health Care Education/Training Program; ATTEND Internal Medicine